=== PATIENT | male | born 1945 | race Caucasian/White ===

== ENCOUNTER 2017-01-12 12:05 | Inpatient (IN) | payer OTHER, MEDICARE ==
[~2017-01-12] VITALS: Ht 170.2 cm; Wt 62.0 kg
[2017-01-12] VITALS (7 sets, daily range): BP systolic 103–137; BP diastolic 69–94; PULSE 91–107; RESP 16–20; TEMP 96.9–98.3; O2SAT 94–100
[~2017-01-12 12:05] MED LIST: ACET325 PO; ACTO35TA PO; CALTCHW5 PO; DILTCD180 PO; PRIL20CA PO; RIVA20 PO
[2017-01-12] MEDS ORDERED: SODIUM CHLOR 0.9% 1000 ML INJ 1,000 ML IV ONE (12:16)
--- NOTE | 2017-01-12 12:26 | PD ---
HPI Chief Complaint: Syncope/Near-Syncope Time Seen by Provider: 12:19 Travel History International Travel<30 days: No Contact w/Intl Traveler<30days: No Traveled to known affect area: No History of Present Illness HPI 71 year old male presents to the emergency department for evaluation after a syncopal episode in front of [employer]. Patient arrived via EMS. He blood pressure on scene was 60/40. He received 1 L NS IV bolus with improvement in BP to 110 systolic. The patient states he felt like walking today so after congregation, he walked to [employer] to get something to eat. He did eat and after he left, he experienced the syncopal episode. He states he felt lightheaded prior to the syncopal episode. He denies any fever, cough, chest pain, shortness of breath, abdominal pain, nausea, vomiting, diarrhea. He denies any blood in his stool. Patient states he still feels dizzy, but denies any other symptoms. Patient reports history of CVA, GERD, A-fib. He is currently on Xarelto and prilosec. PFSH Past Medical History Hx Anticoagulant Therapy: Yes (asa/XARELTO) Atrial Fibrillation: Yes (03/19/16 XARELTO) Cancer: Yes (BASAL CELL CARCINOMA NOSE ) Cardiovascular Problems: Yes (htn) Chemotherapy: No Cerebrovascular Accident: Yes (2016) Diminished Hearing: Yes Endocrine: No Gastrointestinal Disorders: Yes (esophageal strictures) Genitourinary: No Hypertension: Yes Immune Disorder: No Implanted Vascular Access Dvce: Yes Musculoskeletal: Yes Neurologic: Yes (SYNCOPAL HX) Psychiatric: No Reproductive: No Respiratory: No Radiation Therapy: No Tetanus Vaccination: < 5 Years Influenza Vaccination: No Past Surgical History Genitourinary Surgery: Yes (prostate removed ) Other Surgery: Yes (ESOPHAGEAL DILATION) Social History Alcohol Use: No Tobacco Use: No Substance Use: No Allergies-Medications (Allergen,Severity, Reaction): Coded Allergies: No Known Allergies (Verified , 06/04/16) Reported Meds & Prescriptions Reported Meds & Active Scripts Active Reported Tylenol (Acetaminophen) 325 Mg Tab 325 Mg PO Q6H PRN Diltiazem ER 12 HR (Diltiazem HCl) 120 Mg Caper 180 Mg PO BID Prilosec (Omeprazole) 20 Mg Cap 20 Mg PO DAILY Xarelto (Rivaroxaban) 20 Mg Tab 20 Mg PO DAILY Review of Systems Except as stated in HPI: all other systems reviewed are Neg Physical Exam Narrative GENERAL: Well-nourished, well-developed elderly male patient, afebrile. SKIN: Focused skin assessment warm/dry. HEAD: Normocephalic. Atraumatic. EYES: No scleral icterus. No injection or drainage. PERRLA. EOM intact. NECK: Supple, trachea midline. No JVD or lymphadenopathy. CARDIOVASCULAR: Regular rate and rhythm without murmurs, gallops, or rubs. RESPIRATORY: Breath sounds equal bilaterally. No accessory muscle use. Lung sounds are clear to auscultation throughout. GASTROINTESTINAL: Abdomen soft, non-tender, nondistended. MUSCULOSKELETAL: No cyanosis, or edema. Bilateral upper and lower extremity strength 5/5. All extremities are neurovascularly intact. BACK: Nontender without obvious deformity. No CVA tenderness. NEUROLOGICAL: Awake and alert. Cranial nerves II through XII intact. Motor and sensory grossly within normal limits. Five out of 5 muscle strength in all muscle groups. Normal speech. Data Data Last Documented VS Vital Signs Date Time Temp Pulse Resp B/P Pulse Ox O2 Delivery O2 Flow Rate FiO2 01/12/17 13:53 102 118/80 99 Room Air 01/12/17 13:23 20 01/12/17 12:10 98.3 Orders Electrocardiogram (01/12/17 ) Complete Blood Count With Diff (01/12/17 12:16) Comprehensive Metabolic Panel (01/12/17 12:16) Magnesium (Mg) (01/12/17 12:16) Ckmb (Isoenzyme) Profile (01/12/17 12:16) Troponin I (01/12/17 12:16) Act Partial Throm Time (Ptt) (01/12/17 12:16) Prothrombin Time / Inr (Pt) (01/12/17 12:16) Urinalysis - C+S If Indicated (01/12/17 12:16) Chest, Single Ap (01/12/17 12:16) Ct Brain W/O Iv Contrast(Rout) (01/12/17 12:16) Ecg Monitoring (01/12/17 12:16) Iv Access Insert/Monitor (01/12/17 12:16) Oximetry (01/12/17 12:16) Sodium Chloride 0.9% Flush (Ns Flush) (01/12/17 12:30) Sodium Chlor 0.9% 1000 Ml Inj (Ns 1000 M (01/12/17 12:16) CKMB (01/12/17 12:54) CKMB% (01/12/17 12:54) Admit Order (Ed Use Only) (01/12/17 14:03) Admit To Inpatient (01/12/17 ) Code Status (01/12/17 14:00) Vital Signs (Adult) Q4H (01/12/17 14:00) Neuro Checks Q4H (01/12/17 14:00) Activity Oob With Assistance (01/12/17 14:00) Sodium Chlor 0.9% 1000 Ml Inj (Ns 1000 M (01/12/17 14:00) Sodium Chloride 0.9% Flush (Ns Flush) (01/12/17 14:00) Sodium Chloride 0.9% Flush (Ns Flush) (01/12/17 21:00) Acetaminophen (Tylenol) (01/12/17 14:00) Comprehensive Metabolic Panel (01/13/17 06:00) Complete Blood Count With Diff (01/13/17 06:00) Pt Request For Service (01/12/17 14:00) Case Management Consult (01/12/17 14:00) Scd Bilateral/Knee High TONNY.BID (01/12/17 14:00) Tray Bilateral/Knee High TONNY.QSHIFT (01/12/17 14:00) Acetaminophen (Tylenol) (01/12/17 14:00) Naloxone Inj (Narcan Inj) (01/12/17 14:00) Inpatient Certification (01/12/17 ) Labs Laboratory Tests Test 01/12/17 12:54 White Blood Count 9.6 TH/MM3 Red Blood Count 3.62 MIL/MM3 Hemoglobin 8.5 GM/DL Hematocrit 27.6 % Mean Corpuscular Volume 76.2 FL Mean Corpuscular Hemoglobin 23.4 PG Mean Corpuscular Hemoglobin 30.7 % Concent Red Cell Distribution Width 15.2 % Platelet Count 227 TH/MM3 Mean Platelet Volume 8.8 FL Neutrophils (%) (Auto) 66.7 % Lymphocytes (%) (Auto) 18.0 % Monocytes (%) (Auto) 9.8 % Eosinophils (%) (Auto) 4.7 % Basophils (%) (Auto) 0.8 % Neutrophils # (Auto) 6.4 TH/MM3 Lymphocytes # (Auto) 1.7 TH/MM3 Monocytes # (Auto) 0.9 TH/MM3 Eosinophils # (Auto) 0.5 TH/MM3 Basophils # (Auto) 0.1 TH/MM3 CBC Comment AUTO DIFF Differential Comment AUTO DIFF CONFIRMED Ovalocytes 1+ Prothrombin Time 13.9 SEC Prothromb Time International 1.2 RATIO Ratio Activated Partial 24.5 SEC Thromboplast Time Sodium Level 141 MEQ/L Potassium Level 3.9 MEQ/L Chloride Level 112 MEQ/L Carbon Dioxide Level 20.6 MEQ/L Anion Gap 8 MEQ/L Blood Urea Nitrogen 14 MG/DL Creatinine 1.31 MG/DL Estimat Glomerular Filtration 54 ML/MIN Rate Random Glucose 119 MG/DL Calcium Level 8.2 MG/DL Magnesium Level 1.8 MG/DL Total Bilirubin 0.4 MG/DL Aspartate Amino Transf 42 U/L (AST/SGOT) Alanine Aminotransferase 29 U/L (ALT/SGPT) Alkaline Phosphatase 219 U/L Total Creatine Kinase 110 U/L Creatine Kinase MB 1.2 NG/ML Troponin I LESS THAN 0.02 NG/ML Total Protein 6.5 GM/DL Albumin 3.0 GM/DL [facility] Medical Decision Making Medical Screen Exam Complete: Yes Emergency Medical Condition: Yes Medical Record Reviewed: Yes Differential Diagnosis electrolyte abnormality vs. CVA vs. cardiac arrhythmia vs. dehydration vs. ACS Narrative Course 71 year old male presents to the emergency department via EMS for evaluation after a syncopal episode that occurred just prior to arrival. EKG shows atrial fibrillation, HR 85, no acute ST changes. CBC, CMP, Magnesium, CK, troponin, PTT, PT/INR, UA are ordered and pending. Chest x-ray and CT of the brain are ordered and pending. Patient is given NS 1 L IV bolus. CBC shows hemoglobin 8.5, hematocrit 27.6. CMP shows creatinine 1.31, AST 42, alkaline phosphatase 219. Magnesium is 1.8. CK is 110. Troponin is less than 0.02. Coags show no acute abnormality. UA is pending. Ct of the brain shows slight atrophic and small vessel ischemic changes without any evidence for acute hemorrhage or mass effect. Left CPA mass probably meningioma, however indeterminate. My attending physician, Dr. Cueto, reviewed previous notes and imaging. Dr. Medina saw patient previously and believed this to be a meningioma. Chest x-ray shows no acute cardiopulmonary disease. [facility] is paged for admission. Dr. Oviedo accepted admission. [facility] Point of Care Internal Pos. & Neg. Controls: Passed Fecal Specimen Occult Blood: Positive Diagnosis Primary Impression: Syncope Qualified Code: R55 - Syncope, unspecified syncope type Additional Impressions: Hypotension Qualified Code: I95.9 - Hypotension, unspecified hypotension type Lightheadedness Admitting Information Admitting Physician Requests: Observation [place] Jan 12, 2017 12:26
[2017-01-12] MEDS ORDERED: SODIUM CHLORIDE 0.9% FLUSH 10 ML FLUSH IVF PRN (12:30)
[2017-01-12 13:07] LABS: AUTOMATED NEUTROPHIL # 6.4 TH/MM3 (1.8-7.7); BASOPHIL # 0.1 TH/MM3 (0-0.2); BASOPHIL % 0.8 % (0.0-2.0); EOSINOPHIL # 0.5 TH/MM3 (0-0.4); EOSINOPHIL % 4.7 % (0.0-4.0); HEMATOCRIT 27.6 % (39.0-51.0); LYMPHOCYTE # 1.7 TH/MM3 (1.0-4.8); MEAN CELL VOLUME 76.2 FL (80.0-100.0); MEAN CORPUSCULAR HEMOGLOBIN 23.4 PG (27.0-34.0); MEAN CORPUSCULAR HGB CONC 30.7 % (32.0-36.0); MONO % 9.8 % (0.0-8.0); NEUT % 66.7 % (16.0-70.0); PLATELET COUNT 227 TH/MM3 (150-450); RED BLOOD COUNT 3.62 MIL/MM3 (4.50-5.90); RED CELL DISTRIBUTION WIDTH 15.2 % (11.6-17.2); WHITE BLOOD COUNT 9.6 TH/MM3 (4.0-11.0)
[2017-01-12 13:08] LABS: HEMO FLAGS AUTO DIFF
--- NOTE | 2017-01-12 13:15 | RADRPT ---
EXAM DATE/TIME: 01/12/2017 12:27 [facility] COMPARISON: CT BRAIN W/O CONTRAST, January 01, 2016, 0:53. INDICATIONS : Syncopal episode. RADIATION DOSE: 56.35 CTDIvol (mGy) MEDICAL HISTORY : Stroke. Hypertension. Cardiovascular disease SURGICAL HISTORY : None. ENCOUNTER: Initial ACUITY: 1 day PAIN SCALE: Non-responsive LOCATION: cranial TECHNIQUE: Multiple contiguous axial images were obtained of the head. Using automated exposure control and adjustment of the mA and/or kV according to patient size, radiation dose was kept as low as reasonably achievable to obtain optimal diagnostic quality images. FINDINGS: There is abnormal soft tissue mass involving the left CP angle which measures 3.4 x 1.1 cm in size pa rtially extends to the posterior portion of the cavernous sinus and present on the prior examination may represent a meningioma, however other etiologies such as metastatic disease is not excluded. Ther e is no evidence for intracranial hemorrhage, mass effect, or edema. The visualized bony structures appear intact. Slight degree of brain atrophy is seen. Slight periventricular white matter changes a re seen nonspecific mostly consistent with chronic small vessel ischemic changes. There are no signs of acute infarction for technique. CONCLUSION: 1. Slight atrophic and small vessel ischemic changes without any evidence for acute hemorrhage or mas s effect. Left CPA mass probably meningioma, however indeterminate. Yaw Cormier MD on January 12, 2017 at 13:10 Board Certified Radiologist. This report was verified electronically.
[2017-01-12 13:17] LABS: APTT (PATIENT) 24.5 SEC (24.3-30.1); INTERNATIONAL NORMALIZED RATIO 1.2 RATIO; PROTHROMBIN TIME - PATIENT 13.9 SEC (9.8-11.6)
[2017-01-12] MEDS ORDERED: DILT120C9 PO (13:19)
[2017-01-12] MEDS ORDERED: XARE20TA PO (13:19)
[2017-01-12] MEDS ORDERED: PRIL20CA9 PO (13:19)
[2017-01-12] MEDS ORDERED: TYLE325T PO (13:19)
--- NOTE | 2017-01-12 13:26 | RADRPT ---
EXAM DATE/TIME: 01/12/2017 12:36 [facility] COMPARISON: CHEST SINGLE AP, March 19, 2016, 11:30. INDICATIONS : Syncope. MEDICAL HISTORY : Stroke. Myocardial infarction. SURGICAL HISTORY : None. ENCOUNTER: Initial ACUITY: 1 day PAIN SCORE: 0/10 LOCATION: Bilateral chest FINDINGS: The lungs are clear without infiltrate, nodule, or mass. There is no appreciable pleural effusion fo r technique. Heart and mediastinum are unremarkable. CONCLUSION: No acute cardiopulmonary disease. Yaw Cormier MD on January 12, 2017 at 13:23 Board Certified Radiologist. This report was verified electronically.
[2017-01-12 13:32] LABS: ALKALINE PHOSPHATASE 219 U/L (45-117); ALT (GPT) 29 U/L (12-78); ANION GAP 8 MEQ/L (5-15); AST (GOT) 42 U/L (15-37); BICARBONATE 20.6 MEQ/L (21.0-32.0); BLOOD UREA NITROGEN 14 MG/DL (7-18); CHLORIDE 112 MEQ/L (98-107); CREATINE KINASE 110 U/L (39-308); GLOMERULAR FILTRATION RATE 54 ML/MIN (>89); MAGNESIUM 1.8 MG/DL (1.5-2.5); SODIUM (NA) 141 MEQ/L (136-145); TOTAL BILIRUBIN ADULT 0.4 MG/DL (0.2-1.0)
[2017-01-12 13:34] LABS: POTASSIUM 3.9 MEQ/L (3.5-5.1); SCAN/DIFF AUTO DIFF CONFIRMED
[2017-01-12 13:35] LABS: OVALOCYTES 1+ (NORMAL)
[2017-01-12 13:47] LABS: CKMB 1.2 NG/ML (0.5-3.6)
[2017-01-12] MEDS ORDERED: NALOXONE HCL 0.4 MG/ML AMP IV PRN (14:00)
[2017-01-12] MEDS ORDERED: SODIUM CHLORIDE 0.9% FLUSH 10 ML FLUSH IV FLUSH PRN (14:00)
[2017-01-12] MEDS ORDERED: ACETAMINOPHEN 325 MG TAB PO PRN ×2 (14:00)
[2017-01-12 14:33] LABS: BACTERIA, URINE MOD /hpf; BLOOD, URINE NEG (NEG); COMMENT (UR) CULTURE INDICATED; CULTURE IF INDICATED CULTURE INDICATED; GLUCOSE,URINE NEG (NEG); HYALINE CAST, URINE 2 /lpf (RARE); KETONE, URINE NEG (NEG); MUCUS URINE FEW /lpf (OCC); NITRITE,URINE NEG (NEG); URINE COLOR LIGHT-YELLOW (YELLW/STRAW)
--- NOTE | 2017-01-12 14:35 | HHI.HP ---
[facility] Service [facility] Primary Care Physician Non-Staff Admission Diagnosis syncope, hypotension Diagnoses: (1) Syncope (2) Hypotension Chief Complaint: I passed out Travel History International Travel<30 Days: No Contact w/Intl Traveler <30 Da: No Traveled to Known Affected Are: No History of Present Illness 71 year-old male with a history of hypertension, hyperlipidemia, CVA, atrial fibrillation was brought to the ED by EMS for evaluation of syncopal episode along with BP on the scene 60/40 which improved with 1 L NS bolus. Patient has no recollection however states after religious he walked to [employer] for large then proceeded to walk to [employer], when suddenly without any warning he felt dizzy and lightheadedness followed by collapse. However denies any head trauma, post ictal. He has no shortness of breath or chest pain at time and denies any febrile episode. When he awoke, he found himself surrounding by strangers who called EMS. During my exam, patient was stable and alert and oriented 3. Review of Systems Other 12 systems reviewed and are negative except for the one mentioned in history of present illness Past Family Social History Past Medical History Cancer: Yes (BASAL CELL CARCINOMA NOSE ) Cardiovascular Problems: Yes (htn) Cerebrovascular Accident: Yes (2016) Gastrointestinal Disorders: Yes (esophageal strictures) Hypertension: Yes Past Surgical History prostate removed ESOPHAGEAL DILATION Reported Medications Tylenol (Acetaminophen) 325 Mg Tab 325 Mg PO Q6H PRN Diltiazem ER 12 HR (Diltiazem HCl) 120 Mg Caper 180 Mg PO BID Prilosec (Omeprazole) 20 Mg Cap 20 Mg PO DAILY Xarelto (Rivaroxaban) 20 Mg Tab 20 Mg PO DAILY Allergies: Coded Allergies: No Known Allergies (Verified , 06/04/16) Family History Dad had Lung cancer, DVT Mom from complication of liver disease Social History Alcohol Use: No Tobacco Use: No Substance Use: No Physical Exam Vital Signs Vital Signs Date Time Temp Pulse Resp B/P Pulse Ox O2 Delivery O2 Flow Rate FiO2 01/12/17 13:53 102 118/80 99 Room Air 01/12/17 13:23 92 20 103/69 100 Room Air 01/12/17 12:21 100 Room Air 01/12/17 12:10 98.3 94 20 127/71 100 Physical Exam GENERAL: This is a well-nourished, well-developed patient, in no apparent distress. SKIN: No rashes, ecchymoses or lesions. Cool and dry. HEAD: Atraumatic. Normocephalic. No temporal or scalp tenderness. EYES: Pupils equal round and reactive. Extraocular motions intact. No scleral icterus. No injection or drainage. ENT: Nose without bleeding, purulent drainage or septal hematoma. Throat without erythema, tonsillar hypertrophy or exudate. Uvula midline. Airway patent. NECK: Trachea midline. No JVD or lymphadenopathy. Supple, nontender, no meningeal signs. CARDIOVASCULAR: Regular rate and rhythm without murmurs, gallops, or rubs. RESPIRATORY: Clear to auscultation. Breath sounds equal bilaterally. No wheezes , rales, or rhonchi. GASTROINTESTINAL: Abdomen soft, non-tender, nondistended. No hepato-splenomegaly , or palpable masses. No guarding. MUSCULOSKELETAL: Extremities without clubbing, cyanosis, or edema. No joint tenderness, effusion, or edema noted. No calf tenderness. Negative Homans sign bilaterally. NEUROLOGICAL: Awake and alert. Cranial nerves II through XII intact. Motor and sensory grossly within normal limits. Five out of 5 muscle strength in all muscle groups. Normal speech. Laboratory Laboratory Tests Test 01/12/17 12:54 White Blood Count 9.6 Red Blood Count 3.62 Hemoglobin 8.5 Hematocrit 27.6 Mean Corpuscular Volume 76.2 Mean Corpuscular Hemoglobin 23.4 Mean Corpuscular Hemoglobin 30.7 Concent Red Cell Distribution Width 15.2 Platelet Count 227 Mean Platelet Volume 8.8 Neutrophils (%) (Auto) 66.7 Lymphocytes (%) (Auto) 18.0 Monocytes (%) (Auto) 9.8 Eosinophils (%) (Auto) 4.7 Basophils (%) (Auto) 0.8 Neutrophils # (Auto) 6.4 Lymphocytes # (Auto) 1.7 Monocytes # (Auto) 0.9 Eosinophils # (Auto) 0.5 Basophils # (Auto) 0.1 CBC Comment AUTO DIFF Differential Comment AUTO DIFF CONFIRMED Ovalocytes 1+ Prothrombin Time 13.9 Prothromb Time International 1.2 Ratio Activated Partial 24.5 Thromboplast Time Sodium Level 141 Potassium Level 3.9 Chloride Level 112 Carbon Dioxide Level 20.6 Anion Gap 8 Blood Urea Nitrogen 14 Creatinine 1.31 Estimat Glomerular Filtration 54 Rate Random Glucose 119 Calcium Level 8.2 Magnesium Level 1.8 Total Bilirubin 0.4 Aspartate Amino Transf 42 (AST/SGOT) Alanine Aminotransferase 29 (ALT/SGPT) Alkaline Phosphatase 219 Total Creatine Kinase 110 Creatine Kinase MB 1.2 Troponin I LESS THAN 0.02 Total Protein 6.5 Albumin 3.0 Result Diagram: 01/12/17 1254 01/12/17 1254 Imaging Last Impressions Head CT 01/12/17 1216 Signed Impressions: Service Date/Time: Thursday, January 12, 2017 12:27 - CONCLUSION: 1. Slight atrophic and small vessel ischemic changes without any evidence for acute hemorrhage or mass effect. Left CPA mass probably meningioma, however indeterminate. Yaw Cormier MD Chest X-Ray 01/12/17 1216 Signed Impressions: Service Date/Time: Thursday, January 12, 2017 12:36 - CONCLUSION: No acute cardiopulmonary disease. Yaw Cormier MD Assessment and Plan Problem List: (1) Syncope ICD Code: R55 Status: Acute (2) Hypotension ICD Code: I95.9 Status: Acute (3) Paroxysmal atrial fibrillation ICD Code: I48.0 Status: Acute (4) Acute renal failure ICD Code: N17.9 Status: Acute (5) Metabolic acidosis ICD Code: E87.2 Status: Acute (6) Anemia of chronic disease ICD Code: D63.8 Status: Acute Assessment and Plan 71-year-old man with Syncope and collapse -Head CT noted and reviewed by me with finding of Slight atrophic and small vessel ischemic changes without any evidence for acute hemorrhage or mass effect. Left CPA mass probably meningioma, however indeterminate -Chest x-ray noted and reviewed by me without any cardio pulmonary disease -We will rule out ACS per protocol with serial cardiac enzyme and EKGs -Order 2-D echo secondary to patient history of A. fib and current diagnosis. -Check EEG to rule out any abnormal seizure activity and treat accordingly. Would hold on any antiepileptic drug at this time. -Check carotid ultrasound to rule out any stenosis. Hypotension -H&H 8.5/27.2 however 05/31/16 was 13.3/40.0 , gastroenterology has been consulted -Status post 2 L normal saline bolus, continue gentle IV fluid hydration Anemia of chronic disease -Hemoccult-positive stool with H&H 8.5/27.2 however 05/31/16 was 13.3/40.0 therefore will consult gastroenterology for evaluation for possible colonoscopy -Transfuse for hemoglobin less than 8 -Monitor H&H Acute renal failure Prerenal secondary to dehydration, continue gentle IV fluid hydration. Monitor BUN and creatinine were all nephrotoxic drugs Metabolic acidosis Consider NaHCO3 to IVF History atrial fibrillation: Hold Xarelto and resume Cardizem with holding parameters DVT prophylaxis: Bilateral SCDs as chemical anti-prophylaxis is contraindicated secondary to Hemoccult-positive stool Code Status Full code Discussed Condition With Patient, ED physician Problem Qualifiers (1) Syncope: Qualified Code: R55 - Syncope, unspecified syncope type (2) Hypotension: Qualified Code: I95.9 - Hypotension, unspecified hypotension type Justice Oviedo MD Jan 12, 2017 14:35
[2017-01-12] MEDS: SODIUM CHLOR 0.9% 1000 ML INJ 1,000 ML IV SCH (15:27)
[2017-01-12] MEDS ORDERED: RESP: ALBUTEROL 2.5 MG/IPRATROPIUM 0.5 MG NEB (PRN) NEB (15:30)
--- NOTE | 2017-01-12 19:15 | MB ---
cc: EAN ZEE DATE OF CONSULTATION: 01/12/2017. REASON FOR CONSULTATION: Significant anemia. DATE OF : 1945. REFERRING PHYSICIAN: Dr. Oviedo. REASON FOR REFERRAL Significant anemia. HISTORY OF PRESENT ILLNESS: Thank you for the consultation. This is a 71-year-old gentleman with multiple medical problems including atrial fibrillation. He is on Xarelto. History of CVA, hyperlipidemia, hypertension. The patient came because of significant weakness and had dizziness, lightheadedness and collapsed and denied any chest pain, shortness of breath, found to have significant anemia. I was asked to see him because of that. The patient denies any GI symptoms. Apparently he has history of esophageal stricture status post dilation in the past. He never had a colonoscopy. No hematemesis. No black stool according to him. No diarrhea or constipation. REVIEW OF SYSTEMS: All 12-point negative except for the history of present illness. PAST SURGICAL HISTORY: 1. Esophageal dilation. 2. Prostate removal. FAMILY HISTORY: A significant for DVT and lung cancer. PAST MEDICAL HISTORY: 1. Basal cell carcinoma of the nose. 2. Hypertension. 3. Atrial fibrillation. ALLERGIES: NO KNOWN DRUG ALLERGIES. MEDICATIONS: Reviewed in the chart. Apparently he is only taking Xarelto but the list has: 1. Prilosec. 2. Diltiazem. 3. Tylenol. PHYSICAL EXAMINATION: GENERAL: Alert, oriented, and in no acute distress. VITAL SIGNS: Vital signs are stable at this time. Heart rate between 90 to 105. HEAD, EYES, EARS, NOSE, THROAT: Pupils are round and reactive to light. NECK: The neck is supple. CHEST: Clear to auscultation and percussion. CARDIAC: Irregular rate and rhythm at this time. No murmur or gallops. ABDOMEN: Abdomen soft, nondistended. Positive bowel sounds. EXTREMITIES: No edema, clubbing or cyanosis. NEUROLOGIC: Neurologically intact. He has some minimal weakness of the left from time to time he said. Normal speech. No sign of stroke. PSYCHIATRIC: Psychologically appropriate. LABORATORY DATA: White count 9.6, hemoglobin 8.5, platelet 227,000. INR 1.2. AST 42, ALT 29, total bilirubin 0.6. IMAGING STUDIES: Head CT: Slight atrophic and small vessel ischemic changes, left CPA mass probably meningioma. Chest x-ray negative. ASSESSMENT AND PLAN: A 71-year-old gentleman who has syncope of questionable etiology which could be related to atrial fibrillation, possible stroke. The patient on Xarelto. The patient also has anemia, could be hypokalemia. Recommend following with serial hemoglobin and hematocrit. the patient will need colon EGD. Will ask if he could be off Xarelto for 24 to 48 hours to perform the procedure; if not, we will do it while he is on it. If hemoglobin drops, he will need packed red blood cells. Continue proton pump inhibitor. Further plan to follow based on the endoscopy findings. Will try to do this on Friday to make sure that he is stable enough for it. MD CHRIS Chavira/SANDEE /4:37 PM /7:08 PM
--- NOTE | 2017-01-12 19:36 | RADRPT ---
EXAM DATE/TIME: 01/12/2017 18:29 [facility] COMPARISON: No previous studies available for comparison. INDICATIONS : Syncope. MEDICAL HISTORY : Gastroesophageal reflux disease. Hypertension. Hyperlipidemia. Hearing loss. Syncope. Cerebrovascul ar accident. Hemiplegia. Anticoagulant therapy, Aspirin and Xarelto. Afib. Benign prostatic hypertrop hy. Basal cell carcinoma on nose. SURGICAL HISTORY : Prostatectomy. Esophageal dilation. Transurethral resection of prostate. ENCOUNTER: Initial ACUITY: 1 day PAIN SCORE: 0/10 LOCATION: Bilateral neck PEAK SYSTOLIC VELOCITIES (cm/sec): ICA/CCA RATIO: Right: 2.7 Left: 0.9 ICA: Right: 174 Left: 75 CCA: Right: 65 Left: 79 ECA: Right: 114 Left: 115 VERTEBRAL: Right: 53 antegrade Left: 36 antegrade Elevated flow velocities and ICA/CCA ratios have been found to correlate with increased degrees of vessel stenosis, calculated as percentage of diameter relative to a normal segment of distal ICA/CCA FINDINGS: Elevated velocity present on the right but possibly due to vessel tortuosity. Only mild plaque is see n bilaterally. No definite evidence for hemodynamically significant stenosis. Vertebral artery flow a ntegrade bilaterally. CONCLUSION: 1. Elevated velocity and PSV ratio on the right likely due to vessel tortuosity. No significant plaqu e accumulation identified to suggest a hemodynamically significant stenosis. Vertebral artery flow an tegrade. Mir Ortiz MD on January 12, 2017 at 19:31 Board Certified Radiologist. This report was verified electronically.
[2017-01-12] MEDS: DILTIAZEM-CD 180 MG CAP ER PO SCH (21:11)
[2017-01-12] MEDS: SODIUM CHLORIDE 0.9% FLUSH 10 ML FLUSH IV FLUSH SCH (21:11)
[2017-01-13] VITALS (10 sets, daily range): BP systolic 110–125; BP diastolic 2–77; PULSE 76–106; RESP 18–20; TEMP 97.1–98.9; O2SAT 93–97
[2017-01-13] MEDS: SODIUM CHLOR 0.9% 1000 ML INJ 1,000 ML IV SCH ×3 (00:06→21:46)
[2017-01-13 04:47] LABS: AUTOMATED NEUTROPHIL # 3.5 TH/MM3 (1.8-7.7); BASOPHIL # 0.1 TH/MM3 (0-0.2); BASOPHIL % 0.8 % (0.0-2.0); EOSINOPHIL # 0.4 TH/MM3 (0-0.4); HEMATOCRIT 27.2 % (39.0-51.0); LYMPH % 25.7 % (9.0-44.0); LYMPHOCYTE # 1.7 TH/MM3 (1.0-4.8); MEAN CELL VOLUME 75.1 FL (80.0-100.0); MEAN CORPUSCULAR HEMOGLOBIN 23.3 PG (27.0-34.0); MEAN CORPUSCULAR HGB CONC 31.1 % (32.0-36.0); MONO % 13.7 % (0.0-8.0); NEUT % 53.8 % (16.0-70.0); PLATELET COUNT 184 TH/MM3 (150-450); RED BLOOD COUNT 3.62 MIL/MM3 (4.50-5.90); RED CELL DISTRIBUTION WIDTH 15.1 % (11.6-17.2); WHITE BLOOD COUNT 6.5 TH/MM3 (4.0-11.0)
[2017-01-13 04:49] LABS: HEMO FLAGS AUTO DIFF
[2017-01-13 05:23] LABS: ALKALINE PHOSPHATASE 271 U/L (45-117); ALT (GPT) 67 U/L (12-78); ANION GAP 5 MEQ/L (5-15); AST (GOT) 161 U/L (15-37); BICARBONATE 23.8 MEQ/L (21.0-32.0); BLOOD UREA NITROGEN 14 MG/DL (7-18); CHLORIDE 113 MEQ/L (98-107); GLOMERULAR FILTRATION RATE 77 ML/MIN (>89); POTASSIUM 3.9 MEQ/L (3.5-5.1); SODIUM (NA) 142 MEQ/L (136-145); TOTAL BILIRUBIN ADULT 0.5 MG/DL (0.2-1.0)
[2017-01-13 05:54] LABS: OVALOCYTES 1+ (NORMAL); SCAN/DIFF AUTO DIFF CONFIRMED
[2017-01-13] MEDS: SODIUM CHLORIDE 0.9% FLUSH 10 ML FLUSH IV FLUSH SCH ×2 (09:00→21:45)
[2017-01-13] MEDS ORDERED: RIVAROXABAN 20 MG TAB PO SCH (09:00)
[2017-01-13] MEDS: PANTOPRAZOLE SOD 20 MG DELAYED RELEASE TAB PO SCH (09:08)
[2017-01-13] MEDS: DILTIAZEM-CD 180 MG CAP ER PO SCH ×2 (09:08→21:45)
--- NOTE | 2017-01-13 11:35 | HHI.PR ---
Subjective Remarks Follow-up syncope/hypotension/GI bleeding 01/13/17-patient seen and examined, stable and denies any syncopal episodes since admission. He also denies any GI bleed. Tolerated by mouth without any competition nausea and vomiting. Currently afebrile. Objective Vitals Vital Signs Date Time Temp Pulse Resp B/P Pulse Ox O2 Delivery O2 Flow Rate FiO2 01/13/17 08:18 97.1 85 20 115/77 93 01/13/17 08:00 85 01/13/17 04:00 97.7 93 18 113/77 97 01/13/17 01:31 95 01/13/17 00:00 98.7 106 18 110/71 95 01/12/17 19:50 98.0 91 16 119/72 98 01/12/17 16:33 96.9 107 20 137/75 94 01/12/17 15:28 101 18 126/94 99 Room Air 01/12/17 13:53 102 118/80 99 Room Air 01/12/17 13:23 92 20 103/69 100 Room Air 01/12/17 12:21 100 Room Air 01/12/17 12:10 98.3 94 20 127/71 100 I/O 01/12/17 01/12/17 01/12/17 01/13/17 01/13/17 01/13/17 07:00 15:00 23:00 07:00 15:00 23:00 Intake Total 600 ml 510 ml Output Total 1000 ml Balance -400 ml 510 ml Intake Oral 100 ml 300 ml IV Total 500 ml 210 ml Output Urine Total 1000 ml # Voids 3 1 # Bowel Movements 1 Result Diagram: 01/13/17 0415 01/13/17 0415 Imaging Last Impressions Head CT 01/12/176 Signed Impressions: Service Date/Time: Thursday, January 12, 2017 12:27 - CONCLUSION: 1. Slight atrophic and small vessel ischemic changes without any evidence for acute hemorrhage or mass effect. Left CPA mass probably meningioma, however indeterminate. Yaw Cormier MD Chest X-Ray 01/12/17 1216 Signed Impressions: Service Date/Time: Thursday, January 12, 2017 12:36 - CONCLUSION: No acute cardiopulmonary disease. Yaw Cormier MD Carotid Artery Ultrasound 01/12/17 0000 Signed Impressions: Service Date/Time: Thursday, January 12, 2017 18:29 - CONCLUSION: 1. Elevated velocity and PSV ratio on the right likely due to vessel tortuosity. No significant plaque accumulation identified to suggest a hemodynamically significant stenosis. Vertebral artery flow antegrade. Mir Ortiz MD Objective Remarks GENERAL: NAD SKIN: Warm and dry. HEAD: Normocephalic. EYES: No scleral icterus. No injection or drainage. NECK: Supple, trachea midline. No JVD or lymphadenopathy. CARDIOVASCULAR: Regular rate and rhythm without murmurs, gallops, or rubs. RESPIRATORY: Breath sounds equal bilaterally. No accessory muscle use. GASTROINTESTINAL: Abdomen soft, non-tender, nondistended. MUSCULOSKELETAL: No cyanosis, or edema. BACK: Nontender without obvious deformity. No CVA tenderness. A/P Problem List: (1) Syncope ICD Code: R55 Status: Acute (2) Hypotension ICD Code: I95.9 Status: Resolved (3) Paroxysmal atrial fibrillation ICD Code: I48.0 Status: Chronic (4) Acute renal failure ICD Code: N17.9 Status: Resolved (5) Metabolic acidosis ICD Code: E87.2 Status: Resolved (6) Anemia of chronic disease ICD Code: D63.8 Status: Acute Assessment and Plan 71-year-old man with Syncope and collapse-resolved -Head CT with finding of Slight atrophic and small vessel ischemic changes without any evidence for acute hemorrhage or mass effect. Left CPA mass probably meningioma, however indeterminate -Chest x-ray without any cardio pulmonary disease -ACS ruled out per protocol with serial cardiac enzyme and EKGs -2-D echo pending -EEG pending -carotid ultrasound noted and review and negative Hypotension -H&H 8.5/27.2 however 05/31/16 was 13.3/40.0 , gastroenterology has been consulted -Status post 2 L normal saline bolus, continue gentle IV fluid hydration Anemia of chronic disease -Hemoccult-positive stool with H&H 8.5/27.2 however 05/31/16 was 13.3/40.0 -GI consulted and plan for colonoscopy 01/14/17 -Transfuse for hemoglobin less than 8 -Monitor H&H Acute renal failure Prerenal secondary to dehydration, resolved with gentle IV fluid hydration. Monitor BUN and creatinine were all nephrotoxic drugs Metabolic acidosis-resolved History atrial fibrillation: Hold Xarelto and continue Cardizem with holding parameters DVT prophylaxis: Bilateral SCDs as chemical anti-prophylaxis is contraindicated secondary to Hemoccult-positive stool Abnormal UA: Patient denies any symptoms of dysuria and currently no white blood cell count therefore will hold on starting antibiotics pending final urine culture Problem Qualifiers (1) Syncope: Qualified Code: R55 - Syncope, unspecified syncope type (2) Hypotension: Qualified Code: I95.9 - Hypotension, unspecified hypotension type Justice Oviedo MD Jan 13, 2017 11:35
--- NOTE | 2017-01-13 11:53 | EKG ---
Date Performed: 01/12/2017 Time Performed: 12:11:57 PTAGE: 71 years EKG: ATRIAL FIBRILLATION ABNORMAL RHYTHM ECG PREVIOUS TRACING : 03/19/2016 17.18 Compared to prior tracing no significant change DOCTOR: Jamal Liriano Interpretating Date/Time 01/13/2017 11:52:01
--- NOTE | 2017-01-13 14:54 | HHI.GIFU ---
Subjective Remarks Resting in bed. No distress. No obvious active bleeding. Tolerating diet, although he states he has to take small bites and chew well because solids will get lodged in mid esophagus. He had this stretched several years ago and he states it has gradually been coming back. (Elizabeth Mckeon) Objective Vitals I&O Vital Signs Date Time Temp Pulse Resp B/P Pulse Ox O2 Delivery O2 Flow Rate FiO2 01/13/17 11:28 98.0 81 20 122/66 96 01/13/17 08:18 97.1 85 20 115/77 93 01/13/17 08:00 85 01/13/17 04:00 97.7 93 18 113/77 97 01/13/17 01:31 95 01/13/17 00:00 98.7 106 18 110/71 95 01/12/17 19:50 98.0 91 16 119/72 98 01/12/17 16:33 96.9 107 20 137/75 94 01/12/17 15:28 101 18 126/94 99 Room Air I/O 01/12/17 01/12/17 01/12/17 01/13/17 01/13/17 01/13/17 07:00 15:00 23:00 07:00 15:00 23:00 Intake Total 600 ml 1020 ml Output Total 1000 ml Balance -400 ml 1020 ml Intake Oral 100 ml 600 ml IV Total 500 ml 420 ml Output Urine Total 1000 ml # Voids 3 2 # Bowel Movements 1 Laboratory Laboratory Tests Test 01/13/17 04:15 White Blood Count 6.5 Red Blood Count 3.62 Hemoglobin 8.5 Hematocrit 27.2 Mean Corpuscular Volume 75.1 Mean Corpuscular Hemoglobin 23.3 Mean Corpuscular Hemoglobin 31.1 Concent Red Cell Distribution Width 15.1 Platelet Count 184 Mean Platelet Volume 9.1 Neutrophils (%) (Auto) 53.8 Lymphocytes (%) (Auto) 25.7 Monocytes (%) (Auto) 13.7 Eosinophils (%) (Auto) 6.0 Basophils (%) (Auto) 0.8 Neutrophils # (Auto) 3.5 Lymphocytes # (Auto) 1.7 Monocytes # (Auto) 0.9 Eosinophils # (Auto) 0.4 Basophils # (Auto) 0.1 CBC Comment AUTO DIFF Differential Comment AUTO DIFF CONFIRMED Ovalocytes 1+ Sodium Level 142 Potassium Level 3.9 Chloride Level 113 Carbon Dioxide Level 23.8 Anion Gap 5 Blood Urea Nitrogen 14 Creatinine 0.96 Estimat Glomerular Filtration 77 Rate Random Glucose 85 Calcium Level 8.3 Total Bilirubin 0.5 Aspartate Amino Transf 161 (AST/SGOT) Alanine Aminotransferase 67 (ALT/SGPT) Alkaline Phosphatase 271 Total Protein 6.0 Albumin 2.9 Date/Time Procedure Status Source Growth 01/12/17 14:10 Urine Culture - Preliminary Resulted Urine Clean Catch Gram Negative [facility] Last Impressions Head CT 01/12/17 1216 Signed Impressions: Service Date/Time: Thursday, January 12, 2017 12:27 - CONCLUSION: 1. Slight atrophic and small vessel ischemic changes without any evidence for acute hemorrhage or mass effect. Left CPA mass probably meningioma, however indeterminate. Yaw Cormier MD Chest X-Ray 01/12/17 1216 Signed Impressions: Service Date/Time: Thursday, January 12, 2017 12:36 - CONCLUSION: No acute cardiopulmonary disease. Yaw Cormier MD Carotid Artery Ultrasound 01/12/17 0000 Signed Impressions: Service Date/Time: Thursday, January 12, 2017 18:29 - CONCLUSION: 1. Elevated velocity and PSV ratio on the right likely due to vessel tortuosity. No significant plaque accumulation identified to suggest a hemodynamically significant stenosis. Vertebral artery flow antegrade. Mir Ortiz MD Physical Exam HEENT: Normocephalic; atraumatic; no jaundice. Throat is clear. NECK: Neck is supple, no JVD, no lymphadenopathy. CHEST: CTA CARDIAC: Irregular ABDOMEN: Soft, nondistended, nontender; no hepatosplenomegaly; bowel sounds are present in all four quadrants. EXTREMITIES: No clubbing, cyanosis, or edema. SKIN: Normal; no rash; no jaundice. FINANCIAL SOLUTIONS ADVISOR: No focal deficits; alert and oriented times three. (Elizabeth Mckeon) Assessment and Plan Plan ASSESSMENT: - Anemia, Hemoccult (+) Stool. No active bleeding. .02/22.2. EGD/Colonoscopy tomorrow. - Dysphagia. Tolerating diet, although he states he has to take small bites and chew well because solids will get lodged in mid esophagus. He had this stretched several years ago and he states it has gradually been coming back. - Syncopal episode. ACS r/o per protocol, CT head with slight atrophic and small vessel ischemic changes without any evidence for acute hemorrhage or mass effect, left CPA mass probably meningioma, however indeterminate, Carotid US unremarkable. 2D echo/EEG pending. Per primary - Atrial fibrillation. Xarelto on hold. Cardizem. Rate controlled. - ANKIT. IMPROVED. PLAN: - Plan for EGD +/- dilatation, Colonoscopy in am - Obtain consent - Clear liquids - NPO after MN - Golytely prep - PPI - Xarelto on hold - Monitor HH - Transfuse as necessary - Supportive care - Further recommendations to follow based on results of above - PT seen and examined by Dr. Lyman and myself and this note is written on her behalf (Elizabeth Mckeon) Physician Comments seen, examined agree with above (Velma Lyman MD) Elizabeth Mckeon Jan 13, 2017 14:54 Velma Lyman MD Jan 13, 2017 18:10
[2017-01-13] MEDS ORDERED: PEG (High)/E-LYTE SOLN 4000 ML BTL PO ONE (16:00)
--- NOTE | 2017-01-13 19:03 | EC ---
Study Study Date:01/13/2017 STUDY CONCLUSIONS SUMMARY - Left ventricle: The cavity size was normal. Wall thickness was normal. Systolic function was normal. The estimated ejection fraction was in the range of 60% to 65%. Wall motion was normal; there were no regional wall motion abnormalities. The study is not technically sufficient to allow evaluation of LV diastolic function. - Left atrium: The atrium was mildly dilated. - Right atrium: The atrium was mildly dilated. - Pulmonary arteries: PA peak pressure: 45mm Hg (S). If LV function is below 40, please consider prescribing an ACEI or ARB or document rationale for non-use. PROCEDURE DATA STUDY STATUS: Elective. Procedure: Transthoracic echocardiography. Image quality was good. Scanning was performed from the parasternal, apical, and subcostal acoustic windows. Study completion: The patient tolerated the procedure well. Transthoracic echocardiography. M-mode, complete 2D, complete spectral Doppler, and color Doppler. Patient status: Inpatient. CARDIAC ANATOMY LEFT VENTRICLE: The cavity size was normal. Wall thickness was normal. Systolic function was normal. The estimated ejection fraction was in the range of 60% to 65%. Wall motion was normal; there were no regional wall motion abnormalities. The study is not technically sufficient to allow evaluation of LV diastolic function. AORTIC VALVE: The valve appears to be grossly normal. Doppler: There was no stenosis. No significant regurgitation. MITRAL VALVE: The valve appears to be grossly normal. Doppler: There was no evidence for stenosis. Trace regurgitation. LEFT ATRIUM: The atrium was mildly dilated. PULMONIC VALVE: Not well visualized. Doppler: There was no evidence for stenosis. Trace regurgitation. TRICUSPID VALVE: The valve appears to be grossly normal. Doppler: There was no evidence for stenosis. Trace regurgitation. RIGHT ATRIUM: The atrium was mildly dilated. PERICARDIUM: There was no pericardial effusion. BASIC MEASUREMENTS ADULT Normal Left ventricle LV internal dimension, ED, chordal level, *38.5 mm 43-52 PLAX LV internal dimension, ES, chordal level, 26.6 mm 23-38 PLAX Fractional shortening, chordal level, PLAX 31 % >29 LV posterior wall thickness, ED 8.99 mm IVS/LVPW ratio, ED *1.38 <1.3 Ventricular septum Septal thickness, ED 12.4 mm Aortic valve Leaflet separation 21 mm 15-26 Right ventricle RV internal dimension, ED, PLAX 30.6 mm 19-38 BASIC MEASUREMENTS ADULT Normal Aortic valve Leaflet separation 21 mm 15-26 Aorta Root diameter, ED 33 mm 20-37 Left atrium Anterior-posterior dimension, ES *47 mm 19-40 LA/aortic root ratio 1.42 DOPPLER MEASUREMENTS ADULT Normal Main pulmonary artery Pressure, S *45 mm Hg =30 Tricuspid valve Regurgitant peak velocity 221 cm/s Peak RV-RA gradient, S 20 mm Hg Maximal regurgitant velocity 221 cm/s Systemic veins Estimated CVP 10 mm Hg Right ventricle RV pressure, S *45 mm Hg <30 LEGEND: Mean values are shown as u=mean value. Asterisk (*) handley values outside specified normal range. Prepared and signed by Ruel Cueto [id number]
--- NOTE | 2017-01-13 19:57 | MG ---
cc: TUNDE CHAPARRO M.D. Lab No: Date: 01/13/2017 Age: Sex: M Race: REQUESTING PHYSICIAN Dr. Oviedo INTRODUCTION An EEG was obtained on this 71-year-old patient with syncope and being evaluated for possible seizures. MEDICATIONS 1. Diltiazem. 2. Protonix. DESCRIPTION The patient is awake. He is described as awake during the study. There is a 8-9 per second alpha activity in the central and posterior head regions. There are low amplitude beta rhythms diffusely. The patient drowses and there is some theta activity bilaterally. Photic stimulation disclosed no significant change. The patient is awake and drowsy intermittently during the recording. INTERPRETATION Normal awake and drowsy EEG. Tunde Chaparro MD OFC/KK /6:15 PM /7:52 PM
[2017-01-14] VITALS (9 sets, daily range): BP systolic 131–158; BP diastolic 65–83; PULSE 83–102; RESP 16–20; TEMP 97.5–101.2; O2SAT 89–96
[2017-01-14] MEDS: SODIUM CHLOR 0.9% 1000 ML INJ 1,000 ML IV SCH ×2 (06:00→16:00)
[2017-01-14] MEDS: cefTRIAXone INJ 1,000 MG in SODIUM CHLORIDE 0.9% INJ 100 ML IV SCH (07:49)
[2017-01-14] MEDS: PANTOPRAZOLE SOD 20 MG DELAYED RELEASE TAB PO SCH (08:20)
[2017-01-14] MEDS: DILTIAZEM-CD 180 MG CAP ER PO SCH ×2 (08:20→21:55)
[2017-01-14] MEDS: SODIUM CHLORIDE 0.9% FLUSH 10 ML FLUSH IV FLUSH SCH ×2 (08:22→21:56)
--- NOTE | 2017-01-14 11:28 | HHI.PR ---
Subjective Remarks Follow-up syncope/hypotension/GI bleeding 01/13/17-patient seen and examined, stable and denies any syncopal episodes since admission. He also denies any GI bleed. Tolerated by mouth without any competition nausea and vomiting. Currently afebrile. 01/14/17-patient seen and examined; Currently NPO and no acute event overnight. Afebrile and no dizziness. Objective Vitals Vital Signs Date Time Temp Pulse Resp B/P Pulse Ox O2 Delivery O2 Flow Rate FiO2 01/14/17 10:00 97.8 85 16 155/83 93 01/14/17 08:15 98.3 92 20 158/83 96 01/14/17 08:00 98 01/14/17 04:35 97.5 87 20 132/65 92 01/14/17 00:46 98.7 83 20 131/77 93 01/13/17 23:40 76 01/13/17 19:24 98.9 77 20 123/74 95 01/13/17 16:50 79 01/13/17 16:23 98.6 77 20 125/2 94 01/13/17 11:28 98.0 81 20 122/66 96 I/O 01/13/17 01/13/17 01/13/17 01/14/17 01/14/17 01/14/17 07:00 15:00 23:00 07:00 15:00 23:00 Intake Total 600 ml 1020 ml 80 ml Output Total 1000 ml Balance -400 ml 1020 ml 80 ml Intake Oral 100 ml 600 ml 10 ml IV Total 500 ml 420 ml 70 ml Output Urine Total 1000 ml # Voids 3 2 1 # Bowel Movements 1 1 Result Diagram: 01/13/17 0415 01/13/17 0415 Objective Remarks GENERAL: NAD SKIN: Warm and dry. HEAD: Normocephalic. EYES: No scleral icterus. No injection or drainage. NECK: Supple, trachea midline. No JVD or lymphadenopathy. CARDIOVASCULAR: Regular rate and rhythm without murmurs, gallops, or rubs. RESPIRATORY: Breath sounds equal bilaterally. No accessory muscle use. GASTROINTESTINAL: Abdomen soft, non-tender, nondistended. MUSCULOSKELETAL: No cyanosis, or edema. BACK: Nontender without obvious deformity. No CVA tenderness. A/P Problem List: (1) Syncope ICD Code: R55 Status: Acute (2) Hypotension ICD Code: I95.9 Status: Resolved (3) Paroxysmal atrial fibrillation ICD Code: I48.0 Status: Chronic (4) Acute renal failure ICD Code: N17.9 Status: Resolved (5) Metabolic acidosis ICD Code: E87.2 Status: Resolved (6) Anemia of chronic disease ICD Code: D63.8 Status: Acute (7) UTI (urinary tract infection) ICD Code: N39.0 Status: Acute Assessment and Plan 71-year-old man with Syncope and collapse-resolved -Head CT with finding of Slight atrophic and small vessel ischemic changes without any evidence for acute hemorrhage or mass effect. Left CPA mass probably meningioma, however indeterminate -Chest x-ray without any cardio pulmonary disease -ACS ruled out per protocol with serial cardiac enzyme and EKGs -2-D echo with EF of 60-65% -EEG pending -carotid ultrasound noted and review and negative Hypotension-Resolved -H&H 8.5/27.2 however 05/31/16 was 13.3/40.0 , gastroenterology has been consulted -Status post 2 L normal saline bolus, continue gentle IV fluid hydration Anemia of chronic disease -Hemoccult-positive stool with H&H 8.5/27.2 however 05/31/16 was 13.3/40.0 -GI consulted and plan for colonoscopy today 01/14/17 -Transfuse for hemoglobin less than 8 -Monitor H&H Acute renal failure Prerenal secondary to dehydration, resolved with gentle IV fluid hydration. Monitor BUN and creatinine were all nephrotoxic drugs Metabolic acidosis-resolved History atrial fibrillation: Hold Xarelto and continue Cardizem with holding parameters DVT prophylaxis: Bilateral SCDs as chemical anti-prophylaxis is contraindicated secondary to Hemoccult-positive stool UTI: Start Rocephin 1gm IV today 01/14/17 pending final urine culture Problem Qualifiers (1) Syncope: Qualified Code: R55 - Syncope, unspecified syncope type (2) Hypotension: Qualified Code: I95.9 - Hypotension, unspecified hypotension type Justice Oviedo MD Jan 14, 2017 11:28
[2017-01-14] MEDS ORDERED: PROPOFOL 200 MG/20 ML AMP IV ONE (11:44)
--- NOTE | 2017-01-14 11:56 | GIPROC ---
[facility] [address] [facility]. [facility], [id number] EGD WITH DILATION PROCEDURE REPORT EXAM DATE: 01/14/2017 PATIENT NAME: Alexys Mcclure MR#: [id number] BIRTHDATE: 1945 ATTENDING: Velma Lyman MD ORDER #: [id number] STUDENT LIFE DEAN: Familia Burgos Schulman, Neal, and Sunshine Stiles STATUS: inpatient INDICATIONS: The patient is a 71 yr old male here for an EGD with dilation due to anemia , dysphagia PROCEDURE PERFORMED: EGD w/ biopsy EGD w/ dilation of esophagus via guidewire MEDICATIONS: None and Per Anesthesia. TOPICAL ANESTHETIC: none CONSENT: The patient understands the risks and benefits of the procedure and understands that these risks include, but are not limited to: sedation, allergic reaction, infection, perforation and/or bleeding. Alternative means of evaluation and treatment include, among others: physical exam, x-rays, and/or surgical intervention. The patient elects to proceed with this endoscopic procedure. medical equipment was checked for proper function. Hand hygiene and appropriate measures for infection prevention was taken. After the risks, benefits and alternatives of the procedure were thoroughly explained, Informed consent was verified, confirmed and timeout was successfully executed by the treatment team. The patient was anesthetized with topical anesthesia and the EC-[id number] (Pedi C) and [id number] endoscope was introduced through the mouth and advanced to the second portion of the duodenum. The instrument was slowly withdrawn as the mucosa was fully examined. Gastrititis antrum-biopsy duodenum normal-biopsy esophagitis distal esophagus/Mo's -biopsy stricture midesophagus-biopsy a pediatric scope was used. Dilation was performed at mid esophagus. DILATOR: SIZE(S): RESISTANCE: HEME: APPEARANCE: Dilator: Savary over guidewire Size(s): 12.8, 14 COMMENT: Retroflexed views revealed a hiatal hernia ADVERSE EVENTS: There were no complications. IMPRESSIONS: 1. Gastrititis antrum-biopsy duodenum normal-biopsy esophagitis distal esophagus/Mo's -biopsy stricture midesophagus-biopsy a pediatric scope was used 2. Retroflexed views revealed a hiatal hernia RECOMMENDATIONS: 1. Await biopsy results. Biopsy results will not be ready for 7-10 days. If you don't hear from us in two weeks, call our office for biopsy results. 2. Anti-reflux regimen 3. Start PPI 4. Avoid NSAIDS REPEAT EXAM: EGD pending biopsy results Velma Lyman MD eSigned: Velma Lyman MD 01/14/2017 11:55 AM cc: PATIENT NAME: Alexys Mcclure MR#: [id number]
--- NOTE | 2017-01-14 12:01 | GIPROC ---
[facility] [address] [facility]. [facility], [address] COLONOSCOPY PROCEDURE REPORT EXAM DATE: 01/14/2017 PATIENT NAME: Alexys Mcclure MR #: [id number] BIRTHDATE: 1945 ENDOSCOPIST: Velma Lyman MD ORDER #: [id number] OPERATOR: Familia Burgos Stienbarger, Terrie, and Steven Fonseca STATUS: inpatient INDICATIONS: The patient is a 71 yr old male here for a colonoscopy due to aneami, gi bleeding PROCEDURE PERFORMED: clip applience MEDICATIONS: None and Per Anesthesia. PREP QUALITY: fair PREP TYPE:GoLytely ESTIMATED BLOOD LOSS: None CONSENT: The patient understands the risks and benefits of the procedure and understands that these risks include, but are not limited to: sedation, allergic reaction, infection, perforation and/or bleeding. Alternative means of evaluation and treatment include, among others: physical exam, x-rays, and/or surgical intervention. The patient elects to proceed with this endoscopic procedure. medical equipment was checked for proper function. Hand hygiene and appropriate measures for infection prevention was taken. After the risks, benefits and alternatives of the procedure were thoroughly explained, Informed consent was verified, confirmed and timeout was successfully executed by the treatment team. A digital exam revealed external hemorrhoids The Pentax EC-3490Li endoscope was introduced through the anus and advanced to the cecum, which was identified by both the appendix and ileocecal valve. The instrument was then slowly withdrawn as the colon was fully examined. COLON FINDINGS: Multiple polyps in cecum, ascending-at least 10 in each location, sessile-sizes 5-7 mm,4 larger ones in cecum 2 sessile-1 cm each, 2 pedunculated-1 cm each-hot snare polypectomy, polyps retrieved with a net another large 2 cm sessile polyp in rectum-hot snare polypectomy, 2 clips applied at the base. Retroflexed views revealed internal hemorrhoids and Retroflexed views revealed small internal hemorrhoids The scope was then completely withdrawn from the patient and the procedure terminated. PROCEDURE WITHDRAWAL TIME:45minutes ADVERSE EVENTS: There were no complications. IMPRESSIONS: 1. Multiple polyps in cecum, ascending-at least 10 in each location, sessile-sizes 5-7 mm,4 larger ones in cecum 2 sessile-1 cm each, 2 pedunculated-1 cm each-hot snare polypectomy, polyps retrieved with a net another large 2 cm sessile polyp in rectum-hot snare polypectomy, 2 clips applied at the base 2. Retroflexed views revealed internal hemorrhoids 3. Retroflexed views revealed small internal hemorrhoids 4. Revealed external hemorrhoids RECOMMENDATIONS: 1. Await biopsy results. Biopsy results will not be ready for 7-10 days. If you don't hear from us in two weeks, call our office for results. 2. Clear liquid diet colonoscopy in am for removal of aditional polyps RECALL: Return 1 day Colonoscopy Velma Lyman MD eSigned: Velma Lyman MD 01/14/2017 12:01 PM cc:
[2017-01-15] VITALS (10 sets, daily range): BP systolic 130–150; BP diastolic 68–82; PULSE 79–93; RESP 18–22; TEMP 97.9–100.1; O2SAT 95–98
[2017-01-15] MEDS: SODIUM CHLOR 0.9% 1000 ML INJ 1,000 ML IV SCH ×3 (05:30→23:54)
--- NOTE | 2017-01-15 08:28 | HHI.PR ---
Subjective Remarks Follow-up syncope/hypotension/GI bleeding 01/13/17-patient seen and examined, stable and denies any syncopal episodes since admission. He also denies any GI bleed. Tolerated by mouth without any competition nausea and vomiting. Currently afebrile. 01/14/17-patient seen and examined; Currently NPO and no acute event overnight. Afebrile and no dizziness. 01/15/17-patient seen and examined, denies any acute event overnight. Nothing by mouth pending colonoscopy for additional removal of polyps this morning. Patient was started on IV antibiotic for Klebsiella pneumonia UTI yesterday. Objective Vitals Vital Signs Date Time Temp Pulse Resp B/P Pulse Ox O2 Delivery O2 Flow Rate FiO2 01/15/17 07:54 98.9 84 20 143/73 96 01/15/17 05:21 100.1 89 20 140/73 97 01/15/17 01:13 99.3 86 20 130/68 95 01/15/17 00:00 89 01/14/17 19:49 101.2 102 20 142/81 95 01/14/17 17:32 100.1 92 20 144/79 01/14/17 15:50 85 01/14/17 12:43 98.6 86 20 140/77 89 01/14/17 12:10 77 18 126/77 95 01/14/17 12:00 77 18 133/76 93 01/14/17 11:50 97.5 79 18 126/79 94 01/14/17 10:00 97.8 85 16 155/83 93 I/O 01/14/17 01/14/17 01/14/17 01/15/17 01/15/17 01/15/17 07:00 15:00 23:00 07:00 15:00 23:00 Intake Total 1480 ml Balance 1480 ml Intake Oral 510 ml IV Total 170 ml Other 800 ml # Voids 2 1 # Bowel Movements 1 Result Diagram: 01/13/17 0415 01/13/17 0415 Imaging Last Impressions Head CT 01/12/17 1216 Signed Impressions: Service Date/Time: Thursday, January 12, 2017 12:27 - CONCLUSION: 1. Slight atrophic and small vessel ischemic changes without any evidence for acute hemorrhage or mass effect. Left CPA mass probably meningioma, however indeterminate. Yaw Cormier MD Chest X-Ray 01/12/17 1216 Signed Impressions: Service Date/Time: Thursday, January 12, 2017 12:36 - CONCLUSION: No acute cardiopulmonary disease. Yaw Cormier MD Carotid Artery Ultrasound 01/12/17 0000 Signed Impressions: Service Date/Time: Thursday, January 12, 2017 18:29 - CONCLUSION: 1. Elevated velocity and PSV ratio on the right likely due to vessel tortuosity. No significant plaque accumulation identified to suggest a hemodynamically significant stenosis. Vertebral artery flow antegrade. Mir Ortiz MD Objective Remarks GENERAL: NAD SKIN: Warm and dry. HEAD: Normocephalic. EYES: No scleral icterus. No injection or drainage. NECK: Supple, trachea midline. No JVD or lymphadenopathy. CARDIOVASCULAR: Regular rate and rhythm without murmurs, gallops, or rubs. RESPIRATORY: Breath sounds equal bilaterally. No accessory muscle use. GASTROINTESTINAL: Abdomen soft, non-tender, nondistended. MUSCULOSKELETAL: No cyanosis, or edema. BACK: Nontender without obvious deformity. No CVA tenderness. Procedures EGD and colonoscopy A/P Problem List: (1) Syncope ICD Code: R55 Status: Acute (2) Hypotension ICD Code: I95.9 Status: Resolved (3) Paroxysmal atrial fibrillation ICD Code: I48.0 Status: Chronic (4) Acute renal failure ICD Code: N17.9 Status: Resolved (5) Metabolic acidosis ICD Code: E87.2 Status: Resolved (6) Anemia of chronic disease ICD Code: D63.8 Status: Acute (7) UTI (urinary tract infection) ICD Code: N39.0 Status: Acute (8) Klebsiella pneumoniae infection ICD Code: B96.1 Status: Acute (9) UTI due to Klebsiella species ICD Code: N39.0 Status: Acute Assessment and Plan 71-year-old man with Syncope and collapse-resolved -Head CT with finding of Slight atrophic and small vessel ischemic changes without any evidence for acute hemorrhage or mass effect. Left CPA mass probably meningioma, however indeterminate -Chest x-ray without any cardio pulmonary disease -ACS ruled out per protocol with serial cardiac enzyme and EKGs -2-D echo with EF of 60-65% -EEG negative -carotid ultrasound noted and review and negative Hypotension-Resolved -H&H 8.5/27.2 however 05/31/16 was 13.3/40.0 , gastroenterology has been consulted -Status post 2 L normal saline bolus, Anemia of chronic disease -Hemoccult-positive stool with H&H 8.5/27.2 however 05/31/16 was 13.3/40.0 -GI consulted and status post EGD with esophagitis and gastritis. Colonoscopy with multiple polyps removed however she will undergo colonoscopy again this morning for additional removal of polyps -Continue treatment with PPI -Transfuse for hemoglobin less than 8 -Monitor H&H Acute renal failure Prerenal secondary to dehydration, resolved with gentle IV fluid hydration. Monitor BUN and creatinine were all nephrotoxic drugs Metabolic acidosis-resolved History atrial fibrillation: Hold Xarelto and continue Cardizem with holding parameters DVT prophylaxis: Bilateral SCDs as chemical anti-prophylaxis is contraindicated secondary to Hemoccult-positive stool UTI-klebsiella: currently Rocephin 1gm IV daily then switch to Cipro 500mg BID tonight Problem Qualifiers (1) Syncope: Qualified Code: R55 - Syncope, unspecified syncope type (2) Hypotension: Qualified Code: I95.9 - Hypotension, unspecified hypotension type Justice Oviedo MD Jan 15, 2017 08:28
[2017-01-15] MEDS: SODIUM CHLORIDE 0.9% FLUSH 10 ML FLUSH IV FLUSH SCH ×2 (08:38→21:00)
[2017-01-15] MEDS ORDERED: PROPOFOL 200 MG/20 ML AMP IV ONE (11:56)
--- NOTE | 2017-01-15 12:46 | GIPROC ---
[facility] [address] [facility]. [facility], [address] COLONOSCOPY PROCEDURE REPORT EXAM DATE: 01/15/2017 PATIENT NAME: Alexys Mcclure MR #: [id number] BIRTHDATE: 1945 ENDOSCOPIST: Velma Lyman MD ORDER #: [id number] WALL ATTENDANT: Steven Fonseca and [employer] STATUS: inpatient INDICATIONS: The patient is a 71 yr old male here for a colonoscopy due to history of polyps PROCEDURE PERFORMED: Colonoscopy with polypectomy MEDICATIONS: Per Anesthesia and None. PREP QUALITY: fair PREP TYPE:GoLytely ESTIMATED BLOOD LOSS: None CONSENT: The patient understands the risks and benefits of the procedure and understands that these risks include, but are not limited to: sedation, allergic reaction, infection, perforation and/or bleeding. Alternative means of evaluation and treatment include, among others: physical exam, x-rays, and/or surgical intervention. The patient elects to proceed with this endoscopic procedure. medical equipment was checked for proper function. Hand hygiene and appropriate measures for infection prevention was taken. After the risks, benefits and alternatives of the procedure were thoroughly explained, Informed consent was verified, confirmed and timeout was successfully executed by the treatment team. A digital exam revealed hemorrhoids The Pentax [id number] and [id number] endoscope was introduced through the anus and advanced to the cecum, which was identified by both the appendix and ileocecal valve. The instrument was then slowly withdrawn as the colon was fully examined. COLON FINDINGS: Multiple polyps in cecum, sessile between 5-6 mm -at least 1--hot snare polypectomy, samller ones left behind previous polypectmy sites noted, sessile polyp resected yesterday, base ablated with tip of snare multiple sessile polyps between 5-6 mm in ascending colon-at least 10-hot snare polypectomy, smaller ones left behind multiple sessile polyps at hepatic flexure-6 -5-6 mm-hot snare polypectomy clips in rectum at the site of prior polypectomy. Retroflexed views revealed internal hemorrhoids and Retroflexed views revealed small internal hemorrhoids The scope was then completely withdrawn from the patient and the procedure terminated. PROCEDURE WITHDRAWAL TIME:40minutes ADVERSE EVENTS: There were no complications. IMPRESSIONS: 1. Multiple polyps in cecum, sessile between 5-6 mm -at least 1--hot snare polypectomy, samller ones left behind previous polypectmy sites noted, sessile polyp resected yesterday, base ablated with tip of snare multiple sessile polyps between 5-6 mm in ascending colon-at least 10-hot snare polypectomy, smaller ones left behind multiple sessile polyps at hepatic flexure-6 -5-6 mm-hot snare polypectomy clips in rectum at the site of prior polypectomy 2. Retroflexed views revealed internal hemorrhoids 3. Retroflexed views revealed small internal hemorrhoids 4. Revealed hemorrhoids RECOMMENDATIONS: 1. Await biopsy results. Biopsy results will not be ready for 7-10 days. If you don't hear from us in two weeks, call our office for results. 2. Benefiber 2 tsp daily 3. High fiber diet 4. Probiotics from any [facility] or [employer] store 5. Yearly rectal exams 6. Advance diet ok to dc home from gi point in 1-2 days ok to restart anticoagulation in 2-3 days from gi point , regimen as per primary family screening for colon cancer fu office if malignancy in any of the above polyps will need colorectal suregry eval fu office 1-2 weeks RECALL: Colonoscopy, pending biopsy results Velma Lyman MD eSigned: Velma Lyman MD 01/15/2017 12:46 PM cc: PATIENT NAME: Alexys Mcclure MR#: [id number]
[2017-01-15] MEDS: PANTOPRAZOLE SOD 20 MG DELAYED RELEASE TAB PO SCH (14:06)
[2017-01-15] MEDS: DILTIAZEM-CD 180 MG CAP ER PO SCH ×2 (14:06→21:18)
[2017-01-15] MEDS: cefTRIAXone INJ 1,000 MG in SODIUM CHLORIDE 0.9% INJ 100 ML IV SCH (14:06)
[2017-01-15] MEDS: CIPROFLOXACIN 500 MG TAB PO SCH (21:18)
[2017-01-15] MEDS: LACTOBACILLUS ACIDOPHILUS TAB PO SCH (21:18)
[2017-01-16 01:25] VITALS: BP 129/78; PULSE 79; RESP 18; TEMP 97.8; O2SAT 97
[2017-01-16 04:10] VITALS: PULSE 78
[2017-01-16 07:23] VITALS: BP 143/78; PULSE 93; RESP 20; TEMP 98.7; O2SAT 97
[2017-01-16 08:00] VITALS: PULSE 90
[2017-01-16] MEDS: SODIUM CHLORIDE 0.9% FLUSH 10 ML FLUSH IV FLUSH SCH (09:00)
--- NOTE | 2017-01-16 09:13 | HHI.PR ---
Subjective Remarks Follow-up syncope/hypotension/GI bleeding 01/13/17-patient seen and examined, stable and denies any syncopal episodes since admission. He also denies any GI bleed. Tolerated by mouth without any competition nausea and vomiting. Currently afebrile. 01/14/17-patient seen and examined; Currently NPO and no acute event overnight. Afebrile and no dizziness. 01/15/17-patient seen and examined, denies any acute event overnight. Nothing by mouth pending colonoscopy for additional removal of polyps this morning. Patient was started on IV antibiotic for Klebsiella pneumonia UTI yesterday. 01/16/17-patient seen and examined, stable and no complaint. Completed second part of colonoscopy yesterday 01/15/17. Objective Vitals Vital Signs Date Time Temp Pulse Resp B/P Pulse Ox O2 Delivery O2 Flow Rate FiO2 01/16/17 08:09 Room Air 01/16/17 07:23 98.7 93 20 143/78 97 01/16/17 04:10 78 01/16/17 01:25 97.8 79 18 129/78 97 01/15/17 22:00 Room Air 01/15/17 20:10 97.9 90 20 148/80 96 01/15/17 16:23 99.0 86 22 150/74 95 01/15/17 15:45 93 01/15/17 14:10 98.5 88 18 136/82 98 01/15/17 14:10 Room Air 01/15/17 13:15 97.7 78 16 123/72 95 Room Air 01/15/17 13:00 78 16 125/73 94 Room Air 01/15/17 12:50 97.6 77 15 122/69 94 Room Air I/O 01/15/17 01/15/17 01/15/17 01/16/17 01/16/17 01/16/17 07:00 15:00 23:00 07:00 15:00 23:00 Intake Total 900 ml 450 ml Balance 900 ml 450 ml IV Total 200 ml 450 ml Other 700 ml # Voids 1 4 4 # Bowel Movements 2 Result Diagram: 01/13/17 0415 01/13/17 0415 Imaging Last Impressions Head CT 01/12/17 1216 Signed Impressions: Service Date/Time: Thursday, January 12, 2017 12:27 - CONCLUSION: 1. Slight atrophic and small vessel ischemic changes without any evidence for acute hemorrhage or mass effect. Left CPA mass probably meningioma, however indeterminate. Yaw Cormier MD Chest X-Ray 01/12/17 1216 Signed Impressions: Service Date/Time: Thursday, January 12, 2017 12:36 - CONCLUSION: No acute cardiopulmonary disease. Yaw Cormier MD Carotid Artery Ultrasound 01/12/17 0000 Signed Impressions: Service Date/Time: Thursday, January 12, 2017 18:29 - CONCLUSION: 1. Elevated velocity and PSV ratio on the right likely due to vessel tortuosity. No significant plaque accumulation identified to suggest a hemodynamically significant stenosis. Vertebral artery flow antegrade. Mir Ortiz MD Objective Remarks GENERAL: NAD SKIN: Warm and dry. HEAD: Normocephalic. EYES: No scleral icterus. No injection or drainage. NECK: Supple, trachea midline. No JVD or lymphadenopathy. CARDIOVASCULAR: Regular rate and rhythm without murmurs, gallops, or rubs. RESPIRATORY: Breath sounds equal bilaterally. No accessory muscle use. GASTROINTESTINAL: Abdomen soft, non-tender, nondistended. MUSCULOSKELETAL: No cyanosis, or edema. BACK: Nontender without obvious deformity. No CVA tenderness. Procedures EGD and colonoscopy A/P Problem List: (1) Syncope ICD Code: R55 Status: Acute (2) Hypotension ICD Code: I95.9 Status: Resolved (3) Paroxysmal atrial fibrillation ICD Code: I48.0 Status: Chronic (4) Acute renal failure ICD Code: N17.9 Status: Resolved (5) Metabolic acidosis ICD Code: E87.2 Status: Resolved (6) Anemia of chronic disease ICD Code: D63.8 Status: Acute (7) UTI (urinary tract infection) ICD Code: N39.0 Status: Acute (8) Klebsiella pneumoniae infection ICD Code: B96.1 Status: Acute (9) UTI due to Klebsiella species ICD Code: N39.0 Status: Acute Assessment and Plan 71-year-old man with Syncope and collapse-resolved -Head CT with finding of Slight atrophic and small vessel ischemic changes without any evidence for acute hemorrhage or mass effect. Left CPA mass probably meningioma, however indeterminate -Chest x-ray without any cardio pulmonary disease -ACS ruled out per protocol with serial cardiac enzyme and EKGs -2-D echo with EF of 60-65% -EEG negative -carotid ultrasound noted and review and negative Hypotension-Resolved -H&H 8.5/27.2 however 05/31/16 was 13.3/40.0 , gastroenterology has been consulted -Status post 2 L normal saline bolus, Anemia of chronic disease -Hemoccult-positive stool with H&H 8.5/27.2 however 05/31/16 was 13.3/40.0 -GI consulted and status post EGD with esophagitis and gastritis. Colonoscopy with multiple polyps removed a finding of internal hemorrhoid. Biopsy report pending -Continue treatment with PPI -Transfuse for hemoglobin less than 8 -Monitor H&H Acute renal failure-resolved status post IV fluid hydration Metabolic acidosis-resolved History atrial fibrillation: Hold Xarelto however resume 01/17/17 and continue Cardizem with holding parameters DVT prophylaxis: Bilateral SCDs as chemical anti-prophylaxis is contraindicated secondary to Hemoccult-positive stool UTI-klebsiella: Discontinue Rocephin 1gm IV daily and continue with Cipro 500mg BID tonight Problem Qualifiers (1) Syncope: Qualified Code: R55 - Syncope, unspecified syncope type (2) Hypotension: Qualified Code: I95.9 - Hypotension, unspecified hypotension type Justice Oviedo MD Jan 16, 2017 09:12
[2017-01-16] MEDS ORDERED: CIPR-9 PO (09:16)
[2017-01-16] MEDS ORDERED: FIBE625T PO (09:16)
--- NOTE | 2017-01-16 09:19 | HHI.DS ---
Discharge Summary Admission Date Jan 12, 2017 at 14:04 Discharge Date: Jan 16, 2017 Admitting Diagnosis syncope, hypotension (1) Syncope ICD Code: R55 (2) Hypotension ICD Code: I95.9 (3) Paroxysmal atrial fibrillation ICD Code: I48.0 (4) Acute renal failure ICD Code: N17.9 (5) Metabolic acidosis ICD Code: E87.2 (6) Anemia of chronic disease ICD Code: D63.8 (7) UTI (urinary tract infection) ICD Code: N39.0 (8) Klebsiella pneumoniae infection ICD Code: B96.1 (9) UTI due to Klebsiella species ICD Code: N39.0 Procedures EGD and colonoscopy Brief History - From Admission 71 year-old male with a history of hypertension, hyperlipidemia, CVA, atrial fibrillation was brought to the ED by EMS for evaluation of syncopal episode along with BP on the scene 60/40 which improved with 1 L NS bolus. Patient has no recollection however states after nondenominational he walked to [employer] for large then proceeded to walk to [employer], when suddenly without any warning he felt dizzy and lightheadedness followed by collapse. However denies any head trauma, post ictal. He has no shortness of breath or chest pain at time and denies any febrile episode. When he awoke, he found himself surrounding by strangers who called EMS. During my exam, patient was stable and alert and oriented 3. CBC/BMP: 01/13/17 0415 01/13/17 0415 Imaging Last Impressions Head CT 01/12/176 Signed Impressions: Service Date/Time: Thursday, January 12, 2017 12:27 - CONCLUSION: 1. Slight atrophic and small vessel ischemic changes without any evidence for acute hemorrhage or mass effect. Left CPA mass probably meningioma, however indeterminate. Yaw Cormier MD Chest X-Ray 01/12/17 1216 Signed Impressions: Service Date/Time: Thursday, January 12, 2017 12:36 - CONCLUSION: No acute cardiopulmonary disease. Yaw Cormier MD Carotid Artery Ultrasound 01/12/17 0000 Signed Impressions: Service Date/Time: Thursday, January 12, 2017 18:29 - CONCLUSION: 1. Elevated velocity and PSV ratio on the right likely due to vessel tortuosity. No significant plaque accumulation identified to suggest a hemodynamically significant stenosis. Vertebral artery flow antegrade. Mir Ortiz MD PE at Discharge GENERAL: NAD SKIN: Warm and dry. HEAD: Normocephalic. EYES: No scleral icterus. No injection or drainage. NECK: Supple, trachea midline. No JVD or lymphadenopathy. CARDIOVASCULAR: Regular rate and rhythm without murmurs, gallops, or rubs. RESPIRATORY: Breath sounds equal bilaterally. No accessory muscle use. GASTROINTESTINAL: Abdomen soft, non-tender, nondistended. MUSCULOSKELETAL: No cyanosis, or edema. BACK: Nontender without obvious deformity. No CVA tenderness. Hospital Course Patient underwent workup for syncope and collapse with negative ACS, EEG however positive for fecal occult blood test for which gastroenterology was consulted and patient had both EGD and colonoscopy. He was treated for UTI due to Klebsiella initially with IV Rocephin and then switch to by mouth antibiotic. Xarelto was held throughout hospitalization which should be resumed 01/17/17 and he was continued on Cardizem. Renal function improved with IV fluid hydration. DVT and GI prophylaxis were provided. PT was consulted. Pt Condition on Discharge: Good Discharge Disposition: Discharge Home Discharge Time: <= 30 minutes Discharge Instructions DIET: Follow Instructions for: Heart Healthy Diet Additional Diet Instructions: DR. ROSALES'S OFFICE WILL CALL WITH BIOPSY REPORT IN ABOUT 1 WEEK. IF YOU DON'T HEAR FROM THEM YOU MAY CALL THE OFFICE. Activities you can perform: Regular-No Restrictions Other Activity Instructions: DO NOT DRIVE OR OPERATE ANY MACHINERY OR MAKE ANY IMPORTANT DECISIONS FOR 24 HOURS. Follow up Referrals: Gastroenterology - 2 Weeks PCP Follow-up - 1 Week New Medications: Calcium Polycarbophil (Fibercon) 625 Mg Tab 1250 MG PO DAILY NEB PRN CONSTIPATION #30 Ref 0 TAB Ciprofloxacin (Cipro) 500 Mg Tab 500 MG PO Q12HR Infection #10 TAB Continued Medications: Acetaminophen (Tylenol) 325 Mg Tab 325 MG PO Q6H PRN PAIN SCALE 1 TO 10 Ref 0 TAB Diltiazem ER 12 HR (Diltiazem ER 12 HR) 120 Mg Caper 180 MG PO BID #60 Ref 0 CAP Omeprazole (Prilosec) 20 Mg Cap 20 MG PO DAILY #30 Ref 0 CAP Rivaroxaban (Xarelto) 20 Mg Tab 20 MG PO DAILY Blood Clot Prevention Ref 0 TAB Justice Oviedo MD Jan 16, 2017 09:19
[2017-01-16 09:34] LABS: AUTOMATED NEUTROPHIL # 3.9 TH/MM3 (1.8-7.7); BASOPHIL % 0.7 % (0.0-2.0); EOSINOPHIL # 0.6 TH/MM3 (0-0.4); EOSINOPHIL % 9.5 % (0.0-4.0); HEMATOCRIT 28.5 % (39.0-51.0); LYMPHOCYTE # 1.2 TH/MM3 (1.0-4.8); MEAN CELL VOLUME 73.7 FL (80.0-100.0); MEAN CORPUSCULAR HEMOGLOBIN 23.4 PG (27.0-34.0); MEAN CORPUSCULAR HGB CONC 31.8 % (32.0-36.0); NEUT % 58.8 % (16.0-70.0); PLATELET COUNT 224 TH/MM3 (150-450); RED BLOOD COUNT 3.87 MIL/MM3 (4.50-5.90); RED CELL DISTRIBUTION WIDTH 15.8 % (11.6-17.2); WHITE BLOOD COUNT 6.6 TH/MM3 (4.0-11.0)
[2017-01-16 09:39] LABS: HEMO FLAGS AUTO DIFF
[2017-01-16] MEDS: LACTOBACILLUS ACIDOPHILUS TAB PO SCH (10:26)
[2017-01-16] MEDS: PANTOPRAZOLE SOD 20 MG DELAYED RELEASE TAB PO SCH (10:26)
[2017-01-16] MEDS: DILTIAZEM-CD 180 MG CAP ER PO SCH (10:26)
[2017-01-16] MEDS: CIPROFLOXACIN 500 MG TAB PO SCH (10:26)
[2017-01-16 10:45] LABS: OVALOCYTES 1+ (NORMAL); PLATELET ESTIMATE SMEAR NORMAL (NORMAL); PLATELET MORPHOLOGY NORMAL (NORMAL); SCAN/DIFF AUTO DIFF CONFIRMED
== END 2017-01-16 11:32 | disposition home or self-care (01) | DRG 312 ==
LOC: NEPC 12:05 → NEDA 14:04 → NEPGCP 16:15
PROVIDERS: ADMIT Hospitalist; ATTEND Hospitalist
PROC: 0DB98ZX Excision of Duodenum, Via Natural or Artificial Opening Endoscopic, Diagnostic (ICD-10-PCS; 2017-01-14)
PROC: 0DB68ZX Excision of Stomach, Via Natural or Artificial Opening Endoscopic, Diagnostic (ICD-10-PCS; 2017-01-14)
PROC: 0DB38ZX Excision of Lower Esophagus, Via Natural or Artificial Opening Endoscopic, Diagnostic (ICD-10-PCS; 2017-01-14)
PROC: 0D738ZZ Dilation of Lower Esophagus, Via Natural or Artificial Opening Endoscopic (ICD-10-PCS; 2017-01-14)
PROC: 0DBH8ZX Excision of Cecum, Via Natural or Artificial Opening Endoscopic, Diagnostic (ICD-10-PCS; principal; 2017-01-14 10:17)
PROC: 0DBP8ZX Excision of Rectum, Via Natural or Artificial Opening Endoscopic, Diagnostic (ICD-10-PCS; 2017-01-14 10:17)
PROC: 0DBK8ZX Excision of Ascending Colon, Via Natural or Artificial Opening Endoscopic, Diagnostic (ICD-10-PCS; 2017-01-15)
PROC: 0DBM8ZX Excision of Descending Colon, Via Natural or Artificial Opening Endoscopic, Diagnostic (ICD-10-PCS; 2017-01-15)
PROC: 0DBH8ZX Excision of Cecum, Via Natural or Artificial Opening Endoscopic, Diagnostic (ICD-10-PCS; 2017-01-15)
DX: R55 Syncope and collapse (principal); N17.9 Acute kidney failure, unspecified; E87.2 Acidosis; N39.0 Urinary tract infection, site not specified; K92.2 Gastrointestinal hemorrhage, unspecified; I48.0 Paroxysmal atrial fibrillation; K22.2 Esophageal obstruction; E86.0 Dehydration; I10 Essential (primary) hypertension; B96.1 Klebsiella pneumoniae [K. pneumoniae] as the cause of diseases classified elsewhere; D63.8 Anemia in other chronic diseases classified elsewhere; R13.10 Dysphagia, unspecified; K21.9 Gastro-esophageal reflux disease without esophagitis; Z86.73 Personal history of transient ischemic attack (TIA), and cerebral infarction without residual deficits; Z79.02 Long term (current) use of antithrombotics/antiplatelets; Z85.828 Personal history of other malignant neoplasm of skin; H91.90 Unspecified hearing loss, unspecified ear; D32.9 Benign neoplasm of meninges, unspecified; R19.5 Other fecal abnormalities; Z80.1 Family history of malignant neoplasm of trachea, bronchus and lung; Z84.89 Family history of other specified conditions; E78.5 Hyperlipidemia, unspecified; D12.0 Benign neoplasm of cecum; D12.2 Benign neoplasm of ascending colon; K62.1 Rectal polyp; K64.4 Residual hemorrhoidal skin tags; K64.8 Other hemorrhoids; K29.70 Gastritis, unspecified, without bleeding; K29.80 Duodenitis without bleeding; D12.4 Benign neoplasm of descending colon
CPT/HCPCS: 70450; 71010; 80053; 81001; 82550; 82552; 83735; 84484; 85025; 85610; 85730; 87077; 87086; 87186; 88305; 88312; 93005; 93306; 93880; 95819; C1769; J0696; J7030

== ENCOUNTER → 2017-09-30 | Outpatient (CLI) | payer OTHER ==
[~2017-09-30] MED LIST changes: -ACET325 PO; -ACTO35TA PO; -CALTCHW5 PO; +CIPR-9 PO; +CO Q10CA P-ARTICULR; +DILT120C9 PO; -DILTCD180 PO; +FIBE625T PO; +HYDR-3516 PO; +OMEP20TA93 PO; -PRIL20CA PO; +PRIL20CA9 PO; -RIVA20 PO; +TYLE325T PO; +XARE20TA PO
[2017-09-30 11:47] LABS: AUTOMATED NEUTROPHIL # 3.9 TH/MM3 (1.8-7.7); BASOPHIL # 0.1 TH/MM3 (0-0.2); BASOPHIL % 1.3 % (0.0-2.0); EOSINOPHIL # 0.1 TH/MM3 (0-0.4); EOSINOPHIL % 2.7 % (0.0-4.0); HEMATOCRIT 43.8 % (39.0-51.0); HEMOGLOBIN 14.3 GM/DL (13.0-17.0); LYMPH % 16.9 % (9.0-44.0); LYMPHOCYTE # 0.9 TH/MM3 (1.0-4.8); MEAN CELL VOLUME 83.3 FL (80.0-100.0); MEAN CORPUSCULAR HEMOGLOBIN 27.2 PG (27.0-34.0); MEAN CORPUSCULAR HGB CONC 32.7 % (32.0-36.0); MEAN PLATELET VOLUME 8.6 FL (7.0-11.0); MONO % 8.5 % (0.0-8.0); MONOCYTE # 0.5 TH/MM3 (0-0.9); NEUT % 70.6 % (16.0-70.0); PLATELET COUNT 187 TH/MM3 (150-450); RED BLOOD COUNT 5.26 MIL/MM3 (4.50-5.90); RED CELL DISTRIBUTION WIDTH 18.4 % (11.6-17.2); WHITE BLOOD COUNT 5.5 TH/MM3 (4.0-11.0)
[2017-09-30 11:56] LABS: INTERNATIONAL NORMALIZED RATIO 1.1 RATIO; PROTHROMBIN TIME - PATIENT 10.8 SEC (9.8-11.6)
[2017-09-30 12:11] LABS: BILIRUBIN, URINE NEG (NEG); BLOOD, URINE SMALL (NEG); GLUCOSE,URINE NEG (NEG); KETONE, URINE 80 mg/dL (NEG); MUCUS URINE FEW /lpf (OCC); NITRITE,URINE NEG (NEG); URINE COLOR YELLOW (YELLW/STRAW); URINE LEUKOCYTE ESTERASE NEG (NEG)
[2017-09-30 12:20] LABS: ALBUMIN 4.1 GM/DL (3.4-5.0); ALT (GPT) 23 U/L (12-78); AST (GOT) 33 U/L (15-37); BICARBONATE 23.8 MEQ/L (21.0-32.0); BLOOD UREA NITROGEN 14 MG/DL (7-18); CALCIUM 9.5 MG/DL (8.5-10.1); CHLORIDE 106 MEQ/L (98-107); CREATININE 0.92 MG/DL (0.60-1.30); GLOMERULAR FILTRATION RATE 81 ML/MIN (>89); GLUCOSE,FASTING 60 MG/DL (74-99); SODIUM (NA) 140 MEQ/L (136-145)
[2017-09-30 12:22] LABS: ALKALINE PHOSPHATASE 208 U/L (45-117); TOTAL BILIRUBIN ADULT 0.9 MG/DL (0.2-1.0); TOTAL PROTEIN 8.1 GM/DL (6.4-8.2)
--- NOTE | 2017-09-30 12:24 | RADRPT ---
EXAM DATE/TIME: 09/30/2017 11:59 [place] COMPARISON: No previous studies available for comparison. INDICATIONS : Pre op. Evaluate for pneumonia, pneumothorax, or communicable diseases. MEDICAL HISTORY : Gastroesophageal reflux disease. Hypertension. Hyperlipidemia. Hearing loss. Syncope. Cerebrovascular accident. Hemiplegia. Anticoagulant therapy, Aspirin and Xarelto. Afib. Benign prostatic hypertroph y. Basal cell carcinoma on nose. SURGICAL HISTORY : Prostatectomy. Esophageal dilation. Transurethral resection of prostate. ENCOUNTER: Initial ACUITY: 1 day PAIN SCORE: 0/10 LOCATION: Bilateral chest FINDINGS: PA and lateral views of the chest demonstrate the lungs to be symmetrically aerated without evidence of mass, infiltrate or effusion. Moderate kyphosis. Moderate size hiatal hernia. CONCLUSION: 1. No active disease. Moderate-sized hiatal hernia. Kyphosis. Mir Ortiz MD on September 30, 2017 at 12:22 Board Certified Radiologist. This report was verified electronically.
== END ==
LOC: CPRE 10:54
PROVIDERS: ATTEND Colon & Rectal Surgery
DX: Z01.812 Encounter for preprocedural laboratory examination (principal); Z01.811 Encounter for preprocedural respiratory examination; D12.0 Benign neoplasm of cecum; Z79.01 Long term (current) use of anticoagulants
CPT/HCPCS: 36415; 71046; 80053; 81001; 82378; 85025; 85610; 85730; 86850; 86900; 86901

== ENCOUNTER 2017-10-02 11:03 | Inpatient (IN) | payer OTHER, MEDICARE ==
[~2017-10-02] VITALS: Ht 167.6 cm; Wt 61.0 kg
[2017-10-02] VITALS (8 sets, daily range): BP systolic 145–166; BP diastolic 72–91; PULSE 66–88; RESP 16–18; TEMP 98.1; O2SAT 95–98
[~2017-10-02 11:03] MED LIST changes: -CIPR-9 PO; -HYDR-3516 PO; -PRIL20CA9 PO
[2017-10-02] MEDS ORDERED: ceFAZolin 1,000 MG/NS 100 ML IV SCH ×2 (11:30)
[2017-10-02] MEDS ORDERED: CHLORHEXIDINE GLUCONATE 2 % 1 PACK (2 CLOTHS) TOPICAL PRN (11:30)
[2017-10-02] MEDS ORDERED: SODIUM CHLORID 0.9% 500 ML IV PRN (11:30)
[2017-10-02] MEDS ORDERED: LACTATED RINGER'S 1000 ML IV PRN (11:30)
[2017-10-02] MEDS ORDERED: POVIDONE IODINE 5% (ANTISEPSIS KIT) 4 APPLICATIONS EACH NARE PRN (11:30)
[2017-10-02] MEDS ORDERED: METOPROLOL TARTRATE 25 MG TAB PO PRN (11:30)
[2017-10-02] MEDS ORDERED: CIPR-9 PO (11:52)
[2017-10-02] MEDS ORDERED: ALVIMOPAN 12 MG CAPSULE - On Call PO SCH (12:00)
[2017-10-02] MEDS ORDERED: METRONIDAZOLE 500 MG/100 ML ISONTONIC SOLN IV SCH (12:00)
[2017-10-02] MEDS ORDERED: DEXT 5%-NACL 0.9% 1000 ML INJ 1,000 ML IV SCH (12:00)
[2017-10-02] MEDS ORDERED: ACETAMINOPHEN 1000 MG/100 ML 100 ML IV ONE (13:00)
[2017-10-02] MEDS ORDERED: HYDROmorphone HCL PF 2 MG/ML VIAL ONE (13:01)
[2017-10-02] MEDS ORDERED: MIDAZOLAM HCL 2 MG/2 ML VIAL ONE (13:02)
[2017-10-02] MEDS ORDERED: GLYCOPYRROLATE 1 MG/5 ML SYRINGE IV PUSH ONE (13:15)
[2017-10-02] MEDS ORDERED: LIDOCAINE HCL 1% PF 5 ML SYRINGE OTHER ONE (13:15)
[2017-10-02] MEDS ORDERED: LACTATED RINGER'S 1000 ML INJ 1,000 ML IV ONE (13:15)
[2017-10-02] MEDS ORDERED: ONDANSETRON HCL 4 MG/2 ML VIAL IV PUSH ONE (13:15)
[2017-10-02] MEDS ORDERED: PROPOFOL 200 MG/20 ML AMP IV ONE (13:15)
[2017-10-02] MEDS ORDERED: SODIUM CHLORIDE 0.9% 20 ML VIAL IV ONE (13:15)
[2017-10-02] MEDS ORDERED: NEOSTIGMINE 5 MG/5 ML SYRINGE IV PUSH ONE (13:15)
[2017-10-02] MEDS ORDERED: ROCURONIUM INJ 50 MG/5 ML SYRINGE IV PUSH ONE (13:15)
[2017-10-02] MEDS ORDERED: DEXAMETHASONE SOD PHOS 4 MG/ML VIAL IV ONE (13:15)
[2017-10-02] MEDS ORDERED: Post-op Orders (for Pharmacy) XX ONE (15:15)
[2017-10-02] MEDS ORDERED: ACETAMINOPHEN/HYDROcodone 325 MG/5 MG TAB PO PRN (15:15)
[2017-10-02] MEDS ORDERED: ENALAPRILAT 1.25 MG/ML VIAL IV PUSH PRN (15:15)
[2017-10-02] MEDS ORDERED: SODIUM CHLORIDE 0.9% FLUSH 10 ML FLUSH IV FLUSH PRN (15:15)
[2017-10-02] MEDS ORDERED: ONDANSETRON HCL 4 MG/2 ML VIAL IV PUSH PRN (15:15)
[2017-10-02] MEDS ORDERED: BENZOCAINE 6 MG/MENTHOL 10 MG LOZENGE BUCCAL PRN (15:15)
[2017-10-02] MEDS ORDERED: NALOXONE HCL 0.4 MG/ML AMP IV PUSH PRN (15:15)
[2017-10-02] MEDS ORDERED: MORPHINE SULFATE 30 MG/30 ML PCA IV SCH (15:15)
[2017-10-02] MEDS ORDERED: POTASSIUM CHLOR 40 MEQ PREMIX 100 ML IV PRN (15:15)
[2017-10-02] MEDS ORDERED: POTASSIUM CHLOR 20 MEQ PREMIX 100 ML IV PRN (15:15)
[2017-10-02] MEDS ORDERED: *MEPERIDINE 25 MG INJ VIAL PERIprocedural Use ONLY ONE (15:17)
[2017-10-02] MEDS ORDERED: DO NOT ADM ANY ANTICOAGULANT DRUGS PRN (15:20)
[2017-10-02] MEDS ORDERED: LABETALOL HCL 100 MG/20 ML VIAL ONE ×2 (15:23→16:12)
[2017-10-02] MEDS ORDERED: *morphine SULFATE 10 MG/ML PERIprocedure ONLY ONE ×2 (15:39→15:59)
[2017-10-02 15:57] LABS: AUTOMATED NEUTROPHIL # 11.2 TH/MM3 (1.8-7.7); BASOPHIL # 0.1 TH/MM3 (0-0.2); BASOPHIL % 0.6 % (0.0-2.0); EOSINOPHIL # 0.1 TH/MM3 (0-0.4); EOSINOPHIL % 0.6 % (0.0-4.0); HEMATOCRIT 42.4 % (39.0-51.0); HEMOGLOBIN 13.6 GM/DL (13.0-17.0); LYMPH % 9.2 % (9.0-44.0); LYMPHOCYTE # 1.2 TH/MM3 (1.0-4.8); MEAN CELL VOLUME 84.4 FL (80.0-100.0); MEAN CORPUSCULAR HEMOGLOBIN 27.2 PG (27.0-34.0); MEAN CORPUSCULAR HGB CONC 32.2 % (32.0-36.0); MEAN PLATELET VOLUME 8.6 FL (7.0-11.0); MONO % 5.4 % (0.0-8.0); MONOCYTE # 0.7 TH/MM3 (0-0.9); NEUT % 84.2 % (16.0-70.0); PLATELET COUNT 162 TH/MM3 (150-450); RED BLOOD COUNT 5.02 MIL/MM3 (4.50-5.90); RED CELL DISTRIBUTION WIDTH 18.4 % (11.6-17.2); WHITE BLOOD COUNT 13.3 TH/MM3 (4.0-11.0)
[2017-10-02] MEDS: D5-LR + KCL 20 MEQ INJ 1,000 ML IV SCH ×2 (16:06→20:26)
[2017-10-02 16:11] LABS: BICARBONATE 21.4 MEQ/L (21.0-32.0); CALCIUM 8.3 MG/DL (8.5-10.1); CREATININE 0.84 MG/DL (0.60-1.30)
[2017-10-02] MEDS ORDERED: KETOROLAC TROMETHAMINE 30 MG/ML (IVP) VIAL IVP PRN (17:00)
[2017-10-02] MEDS: METOCLOPRAMIDE HCL 10 MG/2 ML VIAL IVS SCH ×2 (18:16→23:15)
[2017-10-02] MEDS: FUROSEMIDE 20 MG/2 ML VIAL IV PUSH SCH (20:25)
[2017-10-02] MEDS: SODIUM CHLORIDE 0.9% FLUSH 10 ML FLUSH IV FLUSH SCH (20:25)
[2017-10-02] MEDS: ceFAZolin 2 GM PREMIX 50 ML IV SCH (20:25)
[2017-10-02] MEDS: DILTIAZEM-CD 180 MG CAP ER PO SCH (20:25)
[2017-10-02] MEDS: PCA - TOTAL MG MORPHINE DELIVERED PER SHIFT SCH (21:25)
[2017-10-02] MEDS: metroNIDAZOLE 500 MG INJ 100 ML IV SCH (21:26)
[2017-10-03] VITALS (17 sets, daily range): BP systolic 109–130; BP diastolic 58–68; PULSE 69–84; RESP 18–20; TEMP 98.3–99.4; O2SAT 95–97
[2017-10-03] MEDS: D5-LR + KCL 20 MEQ INJ 1,000 ML IV SCH ×4 (02:39→21:38)
[2017-10-03] MEDS: ceFAZolin 2 GM PREMIX 50 ML IV SCH ×2 (04:15→11:50)
[2017-10-03] MEDS: PCA - TOTAL MG MORPHINE DELIVERED PER SHIFT SCH ×3 (05:15→21:39)
[2017-10-03] MEDS: metroNIDAZOLE 500 MG INJ 100 ML IV SCH ×2 (05:16→13:29)
[2017-10-03] MEDS: METOCLOPRAMIDE HCL 10 MG/2 ML VIAL IVS SCH ×3 (05:17→16:59)
[2017-10-03 05:43] LABS: HEMOGLOBIN 12.2 GM/DL (13.0-17.0); LYMPH % 6.7 % (9.0-44.0); LYMPHOCYTE # 0.7 TH/MM3 (1.0-4.8); MEAN CELL VOLUME 83.2 FL (80.0-100.0); MEAN CORPUSCULAR HEMOGLOBIN 28.2 PG (27.0-34.0); MEAN CORPUSCULAR HGB CONC 33.9 % (32.0-36.0); MONO % 10.2 % (0.0-8.0); MONOCYTE # 1.1 TH/MM3 (0-0.9); NEUT % 83.1 % (16.0-70.0); PLATELET COUNT 158 TH/MM3 (150-450); RED BLOOD COUNT 4.32 MIL/MM3 (4.50-5.90); RED CELL DISTRIBUTION WIDTH 18.5 % (11.6-17.2); WHITE BLOOD COUNT 10.8 TH/MM3 (4.0-11.0)
[2017-10-03 05:54] LABS: BICARBONATE 26.9 MEQ/L (21.0-32.0); CALCIUM 8.1 MG/DL (8.5-10.1); CREATININE 0.92 MG/DL (0.60-1.30)
--- NOTE | 2017-10-03 05:57 | MP ---
cc: JOHN LOPEZ M.D. DATE OF SURGERY 10/02/2017 PREOPERATIVE DIAGNOSIS Cecal polyp with multiple ascending colon polyps. PROCEDURE Ascending colectomy. ANESTHESIA Endotracheal. SURGEON Dr. Lopez BIOPHYSICS PROFESSOR Dr. Conte ESTIMATED BLOOD LOSS 25 cc. OPERATIVE FINDINGS This patient had about a 3-cm sessile multilobulated polyp in the cecum. He also had multiple, probably numbering 30 sub-cm polyps in the ascending colon. Many of these were fulgurated but there were many more remaining, semi-pedunculated in nature. Because of all these small polyps and this moderate-sized polyp in the cecum an ascending colectomy was recommended. At surgery an ascending colectomy was done. Exploration of the abdominal cavity revealed that the liver was palpably normal as was the gallbladder, stomach, remainder of the small bowel and the colon. Ileotransverse anastomosis was done in the midportion of the transverse colon. OPERATIVE TECHNIQUE The patient was placed on the table in supine position. After adequate general endotracheal anesthesia a right lower quadrant transverse infraumbilical incision was made and carried down through subcutaneous tissue and the rectus muscles and the peritoneal cavity was entered with the above-mentioned findings. The cecum was mobilized along its peritoneal reflection as was the terminal ileum up. The hepatic flexure was likewise mobilized and lesser sac was entered above the transverse colon and the transverse colon was mobilized. There was really no definite middle colic vessel seen unless it was a very short takeoff but there was a left branch and a right branch and the transverse colon was divided in its mid-section after clearing with an Ethicon QUIQUE-55 stapling device and the marginal vessel was clamped, cut and ligated. Next our attention was turned to the terminal ileum and the terminal ileum was cleared and the ileocolic vessel was taken near its origin after doubly clamping, cutting and ligating. Once this was done the right branches of the middle colic and right colic vessels were clamped, cut and ligated and the specimen was removed from the table. Anastomosis was carried out along the antimesenteric border of the bowel using the Ethicon QUIQUE-55 stapling device and the colotomy was closed with a TX-60 blue staple height stapling device. The mesentery was approximated with a running 3-0 Vicryl suture in a simple running manner. Hemostasis was maintained throughout with electrocautery and ligature. The bowel was replaced in the abdominal cavity in an row boss manner. The abdominal cavity was irrigated thoroughly with saline solution, aspirated dry and the abdominal cavity was closed in layers using a double-stranded #1 PDS for the posterior rectus sheath and a double-stranded #1 PDS for the anterior rectus sheath after irrigating between layers. Next, the subcutaneous tissue was irrigated thoroughly with 1 liter of saline solution and the skin was closed with running 3-0 Vicryl subcuticular suture and dressing was applied. Sponge, needle and instrument counts were reported as correct. The estimated blood loss was 25 cc. The patient tolerated the procedure well and left the operating room in good condition. MD ALANNA Fuentes/MADELEINE /4:19 PM /5:31 AM
[2017-10-03] MEDS: PANTOPRAZOLE SODIUM 40 MG VIAL IVP SCH (08:39)
[2017-10-03] MEDS: FUROSEMIDE 20 MG/2 ML VIAL IV PUSH SCH ×2 (08:39→21:38)
[2017-10-03] MEDS: ALVIMOPAN 12 MG CAPSULE - Post-op dosing PO SCH ×2 (08:39→21:39)
[2017-10-03] MEDS: DILTIAZEM-CD 180 MG CAP ER PO SCH ×2 (08:40→21:38)
[2017-10-03] MEDS: SODIUM CHLORIDE 0.9% FLUSH 10 ML FLUSH IV FLUSH SCH ×2 (08:40→21:00)
[2017-10-03] MEDS ORDERED: PNEUMOCOCCAL POLYVALENT INJ 25 MCG/0.5 ML SYR IM ONE (10:00)
[2017-10-03] MEDS ORDERED: INFLUENZA VIRUS VACCINE (QUADRIVALENT) 0.5 ML SYR IM ONE (10:00)
[2017-10-03] MEDS: HEPARIN SODIUM - SQ 10,000 UNITS/ML VIAL SQ SCH (13:28)
--- NOTE | 2017-10-03 15:48 | HHI.PR ---
Subjective Remarks No N or V. No BMs. Pain OK does not like Morphine VIDEO ENGINEER. Will D/C Objective Vital Signs Date Time Temp Pulse Resp B/P (MAP) Pulse Ox O2 Delivery O2 Flow Rate FiO2 10/03/17 15:00 98.8 69 20 128/58 (81) 95 10/03/17 14:00 78 10/03/17 13:00 82 10/03/17 12:00 74 10/03/17 11:00 98.9 69 20 113/66 (82) 96 10/03/17 11:00 72 10/03/17 10:00 70 10/03/17 09:00 70 10/03/17 08:00 76 10/03/17 07:20 98.3 81 20 122/67 (85) 97 10/03/17 07:20 69 10/03/17 06:00 84 10/03/17 05:15 16 10/03/17 05:00 73 10/03/17 04:00 75 10/03/17 03:00 72 10/03/17 03:00 99.1 83 18 109/64 (79) 96 10/03/17 02:00 76 10/03/17 01:00 74 10/03/17 00:00 74 10/02/17 23:10 98.1 80 16 145/72 (96) 95 10/02/17 23:00 82 10/02/17 22:00 78 10/02/17 21:25 16 10/02/17 21:00 70 10/02/17 20:00 98.1 88 16 166/91 (116) 97 10/02/17 20:00 70 10/02/17 19:00 67 10/02/17 18:00 74 10/02/17 17:00 68 10/02/17 17:00 66 18 166/85 (112) 98 10/02/17 16:30 98.4 69 16 141/69 (93) 97 Nasal Cannula 2 10/02/17 16:15 71 13 139/65 (89) 95 10/02/17 16:00 16 10/02/17 16:00 72 15 188/95 (126) 97 I/O 10/02/17 10/02/17 10/02/17 10/03/17 10/03/17 10/03/17 07:00 15:00 23:00 07:00 15:00 23:00 Intake Total 1872 ml 2387 ml 150 ml Output Total 475 ml 1750 ml Balance 1397 ml 637 ml 150 ml Intake Oral 120 ml 200 ml IV Total 352 ml 2187 ml 150 ml Other 1400 ml Output Urine Total 450 ml 1750 ml Estimated Blood Loss 25 ml # Bowel Movements 0 Result Diagram: 10/03/178 10/03/17427 Objective Remarks VS-S Abd: flat,soft,dressing dry I&Os and Labs OK Assessment and Plan Assessment and Plan POD#[address] [place] [address]. D/C Tele D/C VIDEO ENGINEER D/C dressing and VIDEO ENGINEER in AM CLD today to FLD tomorrow Merlin Lopez MD Oct 03, 2017 15:48
[2017-10-03] MEDS ORDERED: ALVIMOPAN 12 MG CAPSULE PO SCH (21:00)
[2017-10-04 00:19] VITALS: BP 113/56; PULSE 78; RESP 18; TEMP 99.4; O2SAT 95
[2017-10-04] MEDS: HEPARIN SODIUM - SQ 10,000 UNITS/ML VIAL SQ SCH ×2 (01:02→15:02)
[2017-10-04] MEDS: METOCLOPRAMIDE HCL 10 MG/2 ML VIAL IVS SCH ×5 (01:02→23:27)
[2017-10-04 05:00] VITALS: BP 147/72; PULSE 80; RESP 18; TEMP 99; O2SAT 96
[2017-10-04 05:05] LABS: AUTOMATED NEUTROPHIL # 7.2 TH/MM3 (1.8-7.7); BASOPHIL % 0.3 % (0.0-2.0); EOSINOPHIL % 0.2 % (0.0-4.0); HEMATOCRIT 37.4 % (39.0-51.0); HEMOGLOBIN 12.6 GM/DL (13.0-17.0); LYMPH % 12.5 % (9.0-44.0); LYMPHOCYTE # 1.3 TH/MM3 (1.0-4.8); MEAN CORPUSCULAR HGB CONC 33.8 % (32.0-36.0); MEAN PLATELET VOLUME 8.6 FL (7.0-11.0); MONO % 14.8 % (0.0-8.0); MONOCYTE # 1.5 TH/MM3 (0-0.9); NEUT % 72.2 % (16.0-70.0); PLATELET COUNT 164 TH/MM3 (150-450); RED CELL DISTRIBUTION WIDTH 18.1 % (11.6-17.2)
[2017-10-04] MEDS: PCA - TOTAL MG MORPHINE DELIVERED PER SHIFT SCH ×3 (05:50→19:46)
[2017-10-04] MEDS: ACETAMINOPHEN/HYDROcodone 325 MG/5 MG TAB PO PRN ×2 (05:52→16:15)
[2017-10-04 05:55] LABS: BICARBONATE 28.4 MEQ/L (21.0-32.0); CALCIUM 8.7 MG/DL (8.5-10.1); CREATININE 0.88 MG/DL (0.60-1.30)
[2017-10-04] MEDS: D5-LR + KCL 20 MEQ INJ 1,000 ML IV SCH ×3 (06:16→16:25)
[2017-10-04 07:00] VITALS: BP 137/79; PULSE 82; RESP 19; TEMP 98.6; O2SAT 95
[2017-10-04] MEDS: DILTIAZEM-CD 180 MG CAP ER PO SCH ×2 (09:04→19:46)
[2017-10-04] MEDS: FUROSEMIDE 20 MG/2 ML VIAL IV PUSH SCH ×2 (09:04→19:46)
[2017-10-04] MEDS: PANTOPRAZOLE SODIUM 40 MG VIAL IVP SCH (09:04)
[2017-10-04] MEDS: ALVIMOPAN 12 MG CAPSULE - Post-op dosing PO SCH ×2 (09:04→19:46)
[2017-10-04] MEDS: SODIUM CHLORIDE 0.9% FLUSH 10 ML FLUSH IV FLUSH SCH ×2 (09:05→23:28)
[2017-10-04 11:00] VITALS: BP 139/79; PULSE 93; RESP 18; TEMP 98.5; O2SAT 96
[2017-10-04 15:05] VITALS: BP 129/69; PULSE 91; RESP 19; TEMP 99.3; O2SAT 92
[2017-10-04 20:31] VITALS: BP 135/77; PULSE 85; RESP 16; TEMP 98; O2SAT 98
[2017-10-05 00:23] VITALS: BP 118/64; PULSE 89; RESP 17; TEMP 100; O2SAT 96
[2017-10-05] MEDS: HEPARIN SODIUM - SQ 10,000 UNITS/ML VIAL SQ SCH ×2 (02:35→13:09)
[2017-10-05] MEDS: ACETAMINOPHEN/HYDROcodone 325 MG/5 MG TAB PO PRN (02:37)
[2017-10-05 04:00] VITALS: BP 123/67; PULSE 77; RESP 18; TEMP 99.4; O2SAT 96
[2017-10-05] MEDS: METOCLOPRAMIDE HCL 10 MG/2 ML VIAL IVS SCH ×4 (05:58→23:25)
[2017-10-05 08:00] VITALS: BP 131/70; PULSE 76; RESP 17; TEMP 97.3; O2SAT 95
[2017-10-05] MEDS: PANTOPRAZOLE SODIUM 40 MG VIAL IVP SCH (09:42)
[2017-10-05] MEDS: FUROSEMIDE 20 MG/2 ML VIAL IV PUSH SCH (09:43)
[2017-10-05] MEDS: SODIUM CHLORIDE 0.9% FLUSH 10 ML FLUSH IV FLUSH SCH ×2 (09:43→19:55)
[2017-10-05] MEDS: ALVIMOPAN 12 MG CAPSULE - Post-op dosing PO SCH ×2 (09:44→19:55)
[2017-10-05] MEDS: D5-LR + KCL 20 MEQ INJ 1,000 ML IV SCH ×2 (09:44→17:20)
[2017-10-05] MEDS: DILTIAZEM-CD 180 MG CAP ER PO SCH ×2 (09:44→19:55)
[2017-10-05] MEDS: RESP: ALBUTEROL 2.5 MG/3 ML NEB (SCH) INH ×3 (11:41→20:24)
[2017-10-05 12:00] VITALS: BP 130/75; PULSE 93; RESP 17; TEMP 99.2; O2SAT 96
[2017-10-05 16:00] VITALS: BP 128/79; PULSE 92; RESP 17; TEMP 98.7; O2SAT 95
[2017-10-05 20:00] VITALS: BP 120/68; PULSE 82; RESP 17; TEMP 99.8; O2SAT 96
[2017-10-06 00:25] VITALS: BP 105/83; PULSE 90; RESP 17; TEMP 99.9; O2SAT 96
[2017-10-06] MEDS: HEPARIN SODIUM - SQ 10,000 UNITS/ML VIAL SQ SCH (03:20)
[2017-10-06] MEDS: ACETAMINOPHEN/HYDROcodone 325 MG/5 MG TAB PO PRN ×2 (03:24→08:29)
[2017-10-06] MEDS: METOCLOPRAMIDE HCL 10 MG/2 ML VIAL IVS SCH ×2 (05:18→11:24)
[2017-10-06] MEDS: D5-LR + KCL 20 MEQ INJ 1,000 ML IV SCH (05:19)
[2017-10-06 08:00] VITALS: BP 128/66; PULSE 81; RESP 18; TEMP 97.7; O2SAT 96
[2017-10-06] MEDS: RESP: ALBUTEROL 2.5 MG/3 ML NEB (SCH) INH ×2 (08:00→11:29)
[2017-10-06] MEDS: ALVIMOPAN 12 MG CAPSULE - Post-op dosing PO SCH (08:23)
[2017-10-06] MEDS: DILTIAZEM-CD 180 MG CAP ER PO SCH (08:23)
[2017-10-06] MEDS: PANTOPRAZOLE SODIUM 40 MG VIAL IVP SCH (08:23)
[2017-10-06] MEDS: SODIUM CHLORIDE 0.9% FLUSH 10 ML FLUSH IV FLUSH SCH (08:24)
[2017-10-06] MEDS ORDERED: HYDR-3516 PO (11:28)
[2017-10-06 12:00] VITALS: BP 144/77; PULSE 91; RESP 18; TEMP 98.2; O2SAT 97
== END 2017-10-06 13:16 | disposition home or self-care (01) | DRG 331 ==
LOC: HSDI 11:03 → HCPC 16:52 → N07A 10-04 19:26
PROVIDERS: ADMIT Colon & Rectal Surgery; ATTEND Colon & Rectal Surgery
PROC: 0DTH0ZZ Resection of Cecum, Open Approach (ICD-10-PCS; 2017-10-02)
PROC: 0DTK0ZZ Resection of Ascending Colon, Open Approach (ICD-10-PCS; principal; 2017-10-02 13:42)
DX: D12.2 Benign neoplasm of ascending colon (principal); I48.91 Unspecified atrial fibrillation; I69.398 Other sequelae of cerebral infarction; D12.0 Benign neoplasm of cecum; K21.9 Gastro-esophageal reflux disease without esophagitis; Z23 Encounter for immunization; Z79.01 Long term (current) use of anticoagulants; Z85.46 Personal history of malignant neoplasm of prostate
CPT/HCPCS: 80048; 85025; 88307; 88309; 90686; 90732; 94150; 94640; 94664; C9113; J0131; J0690; J1100; J1170; J1644; J1885; J1940; J2175; J2250; J2270; J2405; J2710; J2765; J3010; J3480; J7120; J7613; Q2038